=== PATIENT | female | born 1990 | race American Indian/Alaskan Native ===

== ENCOUNTER → 2016-10-01 | Outpatient (CLI) | payer MEDICAID ==
[2016-10-01 15:48] LABS: CHLORIDE,CL 106 mmol/L (98-110); SODIUM,NA 138 mmol/L (136-146)
== END ==
LOC: MW.CHRC 14:49
PROVIDERS: ATTEND Family Medicine
DX: Z51.81 Encounter for therapeutic drug level monitoring (principal); M06.9 Rheumatoid arthritis, unspecified; Z79.899 Other long term (current) drug therapy; D50.9 Iron deficiency anemia, unspecified
CPT/HCPCS: 36415; 80053; 83550; 85025; 85652

== ENCOUNTER → 2016-11-07 | Outpatient (CLI) | payer MEDICAID ==
[2016-11-07 16:14] LABS: CHLORIDE,CL 107 mmol/L (98-110); SODIUM,NA 138 mmol/L (136-146)
== END ==
LOC: MW.CHRC 15:15
PROVIDERS: ATTEND Family Medicine
DX: M25.552 Pain in left hip (principal)
CPT/HCPCS: 36415; 80053; 83540; 85025; 85652

== ENCOUNTER 2017-06-08 18:25 | Emergency (ER) | payer MEDICAID ==
--- NOTE | 2017-06-08 19:06 | EDM.PDOC ---
ED HPI GENERAL MEDICAL PROBLEM - General Chief Complaint: Upper Extremity Injury/Pain Stated Complaint: PT HURT RT ARM AT WORK Time Seen by Provider: 06/08/17 18:39 Source of Information: Reports: Patient History Limitations: Reports: No Limitations - History of Present Illness INITIAL COMMENTS - FREE TEXT/NARRATIVE: HISTORY AND PHYSICAL: History of present illness: Patient states she was at work when she slipped and fell landing on her right side. Patient has a history of rheumatoid arthritis and has chronic pain to her right shoulder. Stating she needs to get her right shoulder replaced. Currently she is complaining of right shoulder, elbow, forearm and wrist pain. She has the arm guarded in towards her body. Strong radial pulse. Denies hitting her head or any loss of consciousness. Review of systems: As per history of present illness and below otherwise all systems reviewed and negative. Past medical history: As per history of present illness and as reviewed below otherwise noncontributory. Surgical history: As per history of present illness and as reviewed below otherwise noncontributory. Social history: No reported history of drug or alcohol abuse. Family history: As per history of present illness and as reviewed below otherwise noncontributory. Physical exam: HEENT: Atraumatic, normocephalic, pupils reactive, negative for conjunctival pallor or scleral icterus, mucous membranes moist, throat clear, neck supple, nontender, trachea midline. Lungs: Clear to auscultation, breath sounds equal bilaterally, chest nontender. Heart: S1S2, regular, negative for clicks, rubs, or JVD. Abdomen: Soft, nondistended, nontender. Negative for masses or hepatosplenomegaly. Negative for costovertebral tenderness. Pelvis: Stable nontender. Genitourinary: Deferred. Rectal: Deferred. Extremities: Moves all extremities per self. Moderate pain with movement of the right shoulder and elbow. Neurovascular unremarkable. Good capillary refill. Strong radial pulses bilaterally. Skin: Small abrasion noted to the right elbow. Otherwise intact, warm, dry. Neuro: Awake, alert, oriented. Cranial nerves II through XII unremarkable. Cerebellum unremarkable. Motor and sensory unremarkable throughout. Exam nonfocal. Reviewed x-ray results with the patient. She states she has narcotic pain medications at home that she can take. I will give her prescription for Cataflam that she may take during daytime use. A shoulder immobilizer and wrist splint have been given with education. She continues to have problems, especially with her history of rheumatoid arthritis, that she should follow-up with her orthopedic doctor. She voices understanding and is agreeable to plan of care. She denies any further questions at this time. Diagnostics: X-ray of the right shoulder, elbow, wrist Therapeutics: Toradol Impression: Fall Right arm injury due to fall History of RA Plan: 1. There is no evidence of fracture to your shoulder, elbow, forearm or wrist. A shoulder sling and wrist immobilizer have been provided to you for comfort. If he continued to have pain please follow-up with the orthopedic provider. 2. A prescription for Cataflam has been given to you. This is an anti- inflammatory pain medication. Do not take any additional NSAIDs such as Aleve or ibuprofen while taking this medication. He may take your prescribed pain medications that he stayed you have at home. Ice for the first 24 hours, then gentle heat. 3. Please follow-up with your primary caregiver in the next 1-2 days. Return to the ED as needed and as discussed. Definitive disposition and diagnosis as appropriate pending reevaluation and review of above. Onset: Today Duration: Hour(s): Location: Reports: Upper Extremity, Right Right Shoulder Pain Score (Numeric/FACES): 10 - Related Data Allergies Allergy/AdvReac Type Severity Reaction Status Date / Time No Known Allergies Allergy Verified 09/04/16 10:48 Home Meds: Home Meds Adalimumab [Humira] 20 mg SQ 06/08/17 [History] Past Medical History - Past Health History Medical/Surgical History: Denies Medical/Surgical History HEENT History: Reports: None Cardiovascular History: Reports: None Respiratory History: Reports: None Gastrointestinal History: Reports: None Genitourinary History: Reports: None [employer]OR History: Reports: , Other (See Below) Other OB/BYN History: x3 Musculoskeletal History: Reports: RA, Other (See Below) Other Musculoskeletal History: rheumatoid arthritis Neurological History: Reports: None Psychiatric History: Reports: None Endocrine/Metabolic History: Reports: None Hematologic History: Reports: None Immunologic History: Reports: None Oncologic (Cancer) History: Reports: None Dermatologic History: Reports: None - Infectious Disease History Infectious Disease History: Reports: Chicken Pox - Past Surgical History Head Surgeries/Procedures: Reports: None HEENT Surgical History: Reports: None Female Surgical History: Reports: Section Social & Family History - Family History Family Medical History: Noncontributory - Tobacco Use Smoking Status *Q: Current Every Day Smoker Years of Tobacco use: 15 Packs/Tins Daily: 0.1 Used Tobacco, but Quit: Yes Month Tobacco Last Used: May Second Hand Smoke Exposure: No - Caffeine Use Caffeine Use: Reports: Coffee, Energy Drinks Caffeine Use Comment: 2/day - Alcohol Use Days Per Week of Alcohol Use: 0 - Recreational Drug Use Recreational Drug Use: No Review of Systems - Review of Systems Review Of Systems: ROS reveals no pertinent complaints other than HPI. ED EXAM, GENERAL - Physical Exam Exam: See Below (See dictation) Course - Vital Signs Last Recorded V/S: Last Vital Signs Temp 36.7 C 06/08/17 19:00 Pulse 84 06/08/17 19:00 Resp 18 06/08/17 19:00 BP 106/65 06/08/17 19:00 Pulse Ox 97 06/08/17 19:00 - Orders/Labs/Meds Orders: Active Orders 24 hr Category Date Time Status Elbow Min 3V Rt [CR] Stat Exams 06/08/17 19:00 Taken Shoulder Comp Rt [CR] Stat Exams 06/08/17 19:00 Taken Wrist 2V Rt [CR] Stat Exams 06/08/17 19:00 Taken DME for Discharge [COMM] Stat Oth 06/08/17 20:24 Ordered Meds: Medications Discontinued Medications Generic Name Dose Route Start Last Admin Trade Name Freq PRN Reason Stop Dose Admin Ketorolac Tromethamine 60 mg 06/08/17 19:09 06/08/17 19:29 Toradol IM 06/08/17 19:10 60 mg ONETIME ONE Administration Departure - Departure Time of Disposition: 20:31 Disposition: Home, Self-Care 01 Clinical Impression: Arm injury Qualifiers: Encounter type: initial encounter Laterality: right Qualified Code(s): S49.91XA - Unspecified injury of right shoulder and upper arm, initial encounter Fall Qualifiers: Encounter type: initial encounter Qualified Code(s): W19.XXXA - Unspecified fall, initial encounter - Discharge Information Forms: ED Department Discharge Additional Instructions: My general discharge The following information is given to patients seen in the emergency department who are being discharged to home. This information is to outline your options for follow-up care. We provide all patients seen in our emergency department with a follow-up referral. The need for follow-up, as well as the timing and circumstances, are variable depending upon the specifics of your emergency department visit. If you don't have a primary care physician on staff, we will provide you with a referral. We always advise you to contact your personal physician following an emergency department visit to inform them of the circumstance of the visit and for follow-up with them and/or the need for any referrals to a consulting specialist. The emergency department will also refer you to a specialist when appropriate. This referral assures that you have the opportunity for follow-up care with a specialist. All of these measure are taken in an effort to provide you with optimal care, which includes your follow-up. Under all circumstances we always encourage you to contact your private physician who remains a resource for coordinating your care. When calling for follow-up care, please make the office aware that this follow-up is from your recent emergency room visit. If for any reason you are refused follow-up, please contact the Emergency Department at and asked to speak to the emergency department charge nurse. Primary Care [address] [place] [id number] Specialty Care - Orthopedic Clinic Professional [facility] [address] [place] [address], [address] [place] [address] 1. There is no evidence of fracture to your shoulder, elbow, forearm or wrist. A shoulder sling and wrist immobilizer have been provided to you for comfort. If he continued to have pain please follow-up with the orthopedic provider. 2. A prescription for Cataflam has been given to you. This is an anti- inflammatory pain medication. Do not take any additional NSAIDs such as Aleve or ibuprofen while taking this medication. He may take your prescribed pain medications that he stayed you have at home. Ice for the first 24 hours, then gentle heat. 3. Please follow-up with your primary caregiver in the next 1-2 days. Return to the ED as needed and as discussed. - My Orders Last 24 Hours: My Active Orders 06/08/17 19:00 Elbow Min 3V Rt [CR] Stat Shoulder Comp Rt [CR] Stat Wrist 2V Rt [CR] Stat 06/08/17 20:24 DME for Discharge [COMM] Stat - Assessment/Plan Last 24 Hours: My Active Orders 06/08/17 19:00 Elbow Min 3V Rt [CR] Stat Shoulder Comp Rt [CR] Stat Wrist 2V Rt [CR] Stat 06/08/17 20:24 DME for Discharge [COMM] Stat
[2017-06-08] MEDS ORDERED: Ketorolac 60 MG/2 ML SDV IM ONE (19:09)
[2017-06-08 19:50] VITALS: BP 106/65
[2017-06-08] MEDS ORDERED: traMADol 50 MG Tab PO ONE (20:50)
--- NOTE | 2017-06-09 10:21 | CR ---
EXAM DATE: 06/08/17 PATIENT'S AGE: 26 Patient: YENI MELCHOR Facility: [place], [place] Site . Site : 1990 Study: XRay Extremity elbow [id number]/20/2017 7:51:48 PM Ordering Physician: Doctor Bronson Final Report: HISTORY: Fall. FINDINGS: Three views of the right elbow did not reveal a joint effusion. There is normal alignment present. The radial head appears intact. No fracture line is seen. IMPRESSION: No joint effusion or fracture identified within the right elbow. Dictated by Lanny Crawford MD @ 06/08/2017 8:17:21 PM Dictated by: Lanny Crawford MD @ 06/08/2017 20:17:26 (Electronic Signature) Report Signed by Proxy. MTDShruthi
--- NOTE | 2017-06-09 10:22 | CR ---
EXAM DATE: 06/08/17 PATIENT'S AGE: 26 Patient: YENI MELCHOR Facility: [place], [place] Site . Site : 1990 Study: XRay Extremity wrist [id number]/20/2017 7:52:12 PM Ordering Physician: Doctor Bronson Final Report: HISTORY: Fall. FINDINGS: Two views of the right wrist demonstrates decrease of the radiocarpal joint with decreased joint space between the carpals. There is normal alignment present. No fracture line is seen. IMPRESSION: 1. Degenerative changes of the wrist with decreased joint space. 2. No fracture identified. If snuffbox tenderness is present and persistent, a follow up exam in 7-10 days may be of value to exclude an occult scaphoid fracture. Dictated by Lanny Crawford MD @ 06/08/2017 8:18:51 PM Dictated by: Lanny Crawford MD @ 06/08/2017 20:18:59 (Electronic Signature) Report Signed by Proxy. MTDShruthi
--- NOTE | 2017-06-09 10:23 | CR ---
EXAM DATE: 06/08/17 PATIENT'S AGE: 26 Patient: YENI MELCHOR Facility: [place], [place] Site . Site : 1990 Study: XRay Shoulder [id number]/20/2017 7:53:16 PM Ordering Physician: Doctor Bronson Final Report: HISTORY: Fall, limited range of motion. FINDINGS: Two views of the right shoulder are compared with 01 August 2016. There decrease of the glenohumeral joint. No acute fracture or dislocation is seen. There is artifact seen medial to the right arm on the AP view and overlying the chest on the transscapular Y-view. IMPRESSION: 1. No fracture identified. 2. Decrease of the glenohumeral joint. Dictated by Lanny Crawford MD @ 06/08/2017 8:22:01 PM Dictated by: Lanny Crawford MD @ 06/08/2017 20:22:06 (Electronic Signature) Report Signed by Proxy. KENNY
== END 2017-06-08 20:55 | disposition home or self-care (01) ==
LOC: MW.ED 18:25
DX: S49.91XA Unspecified injury of right shoulder and upper arm, initial encounter (principal); F17.210 Nicotine dependence, cigarettes, uncomplicated; W01.0XXA Fall on same level from slipping, tripping and stumbling without subsequent striking against object, initial encounter
CPT/HCPCS: 73030; 73080; 73100; 96372; 99283; A9270; J1885; 99284

== ENCOUNTER 2017-06-17 17:20 | Emergency (ER) | payer MEDICAID ==
[2017-06-17] MEDS ORDERED: Sodium Chloride 0.9% 1,000 ML IV ONE (17:29)
[2017-06-17] MEDS ORDERED: diphenhydrAMINE 50 MG/ML SDV IVPUSH ONE (17:29)
[2017-06-17] MEDS ORDERED: Ondansetron 4 MG/2 ML SDV IVPUSH ONE (17:29)
[2017-06-17] MEDS ORDERED: Ketorolac 30 MG/ML SDV IVPUSH ONE (17:29)
--- NOTE | 2017-06-17 17:31 | EDM.PDOC ---
ED HPI GENERAL MEDICAL PROBLEM - General Chief Complaint: Headache Stated Complaint: PT HAS MIGRAINE Time Seen by Provider: 06/17/17 17:22 Source of Information: Reports: Patient History Limitations: Reports: No Limitations - History of Present Illness INITIAL COMMENTS - FREE TEXT/NARRATIVE: HISTORY AND PHYSICAL: Headache History of present illness: Patient is a 26-year-old female who presents to the emergency room with complaints of neck pain and a headache. She states she woke up this morning with "grinding" sensation to her neck anytime she turns it left her right. She felt a "pop" when she turned her head this morning. Had a dull headache last night which has worsened since awakening this morning. Describes the pain as coming from behind her neck up around her scalp bilaterally and behind her eyes. Currently complaints of nausea and visual straining/squinting when driving her vehicle. Stating that it's blurry in the peripheral line bilaterally. She currently has no visual changes or concerns. She reports she has taken Motrin [id number] without any relief. Patient did have a fall on 06/08/2017 which she was evaluated in the emergency room for. At that time her complaint was right upper extremity pain. X-rays were done of the shoulder, elbow, wrist which were all negative. She denies hitting her head or any loss of consciousness during this incident. Not having any neck pain during this incident. Denies any fever, chills, chest pain, shortness of breath, abdominal pain, vomiting or diarrhea. Review of systems: As per history of present illness and below otherwise all systems reviewed and negative. Past medical history: As per history of present illness and as reviewed below otherwise noncontributory. Surgical history: As per history of present illness and as reviewed below otherwise noncontributory. Social history: No reported history of drug or alcohol abuse. Family history: As per history of present illness and as reviewed below otherwise noncontributory. Physical exam: Gen.: HEENT: Atraumatic, normocephalic, pupils reactive, negative for conjunctival pallor or scleral icterus, mucous membranes moist, throat clear, neck supple, nontender, trachea midline. Visual acuity is within normal limits. No nystagmus noted. Does not wear contact lenses or glasses. Lungs: Clear to auscultation, breath sounds equal bilaterally, chest nontender. Heart: S1S2, regular, negative for clicks, rubs, or JVD. Abdomen: Soft, nondistended, nontender. Negative for masses or hepatosplenomegaly. Negative for costovertebral tenderness. Pelvis: Stable nontender. Genitourinary: Deferred. Rectal: Deferred. C-spine/back: No pinpoint vertebral tenderness of the C-spine or back. No crepitus, or obvious deformities or step-offs. Denies any numbness or tingling to her distal extremities. Extremities: Atraumatic, moves all per self, negative for cords or calf pain. Neurovascular unremarkable. Neuro: Awake, alert, oriented. Cranial nerves II through XII unremarkable. Cerebellum unremarkable. Motor and sensory unremarkable throughout. Exam nonfocal. Due to her recent injury on 06/08/2017 I discussed performing a C-spine x-ray to make sure that there is no underlying fracture. She is agreeable to plan of care. Patient is requesting pain medication at this time. Will give her Zofran, Toradol and Benadryl. She does state she has a history of rheumatoid arthritis and takes a lot of anti-inflammatory pain medications and would like something stronger. I suggested we start with the above-stated regiment and we can add more medication if needed. C-spine x-ray is normal. Currently her headache pain is a 4/10, states she feels somewhat better. We discussed using gentle heat at home and resting for the rest the day. She may continue to use [id number] Motrin as needed. Robaxin (dispensed #12 -no refills ) has been prescribed. She states she'll follow up with her primary caregiver in the next 1-2 days. Returning to the ED as needed Diagnostics: Cervical spine x-ray Therapeutics: IV fluid, Zofran, Toradol, Benadryl Impression: Tension Headache Muscular strain Plan: 1. Please continue to use your Motrin [id number] as needed for pain relief. Robaxin 500 mg 1 tab up to 3 times daily has been prescribed for you for muscle spasms in your neck. Please apply gentle heat to the area over the next couple days. 2. Follow-up with your primary caregiver in the next 1-2 days. Return to the ED as needed and as discussed. Definitive disposition and diagnosis as appropriate pending reevaluation and review of above. Duration: Day(s): Location: Reports: Head, Neck occipital area Pain Score (Numeric/FACES): 10 - Related Data Allergies Allergy/AdvReac Type Severity Reaction Status Date / Time No Known Allergies Allergy Verified 06/17/17 17:23 Home Meds: Home Meds Adalimumab [Humira] 20 mg SQ 06/08/17 [History] Past Medical History - Past Health History Medical/Surgical History: Denies Medical/Surgical History HEENT History: Reports: None Cardiovascular History: Reports: None Respiratory History: Reports: None Gastrointestinal History: Reports: None Genitourinary History: Reports: None [employer] History: Reports: , Other (See Below) Other OB/BYN History: x3 Musculoskeletal History: Reports: RA, Other (See Below) Other Musculoskeletal History: rheumatoid arthritis Neurological History: Reports: None Psychiatric History: Reports: None Endocrine/Metabolic History: Reports: None Hematologic History: Reports: None Immunologic History: Reports: None Oncologic (Cancer) History: Reports: None Dermatologic History: Reports: None - Infectious Disease History Infectious Disease History: Reports: Chicken Pox - Past Surgical History Head Surgeries/Procedures: Reports: None HEENT Surgical History: Reports: None Female Surgical History: Reports: Section Social & Family History - Family History Family Medical History: Noncontributory - Tobacco Use Smoking Status *Q: Never Smoker Years of Tobacco use: 4 Packs/Tins Daily: 0.1 Used Tobacco, but Quit: Yes Month Tobacco Last Used: May Second Hand Smoke Exposure: No - Caffeine Use Caffeine Use: Reports: Coffee Caffeine Use Comment: 2/day - Alcohol Use Days Per Week of Alcohol Use: 0 - Recreational Drug Use Recreational Drug Use: No ED ROS GENERAL - Review of Systems Review Of Systems: ROS reveals no pertinent complaints other than HPI. - Physical Exam Exam: See Below (See dictation) Course - Vital Signs Last Recorded V/S: Last Vital Signs Temp 97.4 F 06/17/17 17:20 Pulse 87 06/17/17 17:20 Resp 18 06/17/17 17:20 BP 107/67 06/17/17 17:20 Pulse Ox 97 06/17/17 17:20 - Orders/Labs/Meds Orders: Active Orders 24 hr Category Date Time Status Cervical Spine 2V or 3V [CR] Stat Exams 06/17/17 17:35 Taken Meds: Medications Discontinued Medications Generic Name Dose Route Start Last Admin Trade Name [place] PRN Reason Stop Dose Admin Diphenhydramine HCl 25 mg 06/17/17 17:29 06/17/17 18:35 Benadryl IVPUSH 06/17/17 17:30 25 mg ONETIME ONE Administration Sodium Chloride 1,000 mls @ 999 mls/hr 06/17/17 17:29 06/17/17 18:29 Normal Saline IV 06/17/17 18:29 999 mls/hr STAT ONE Administration Ketorolac Tromethamine 30 mg 06/17/17 17:29 06/17/17 18:34 Toradol IVPUSH 06/17/17 17:30 30 mg ONETIME ONE Administration Ondansetron HCl 4 mg 06/17/17 17:29 06/17/17 18:31 Zofran IVPUSH 06/17/17 17:30 4 mg ONETIME ONE Administration Departure - Departure Time of Disposition: 19:14 Disposition: Home, Self-Care 01 Clinical Impression: Tension-type headache Neck muscle strain Qualifiers: Encounter type: initial encounter Qualified Code(s): S16.1XXA - Strain of muscle, fascia and tendon at neck level, initial encounter - Discharge Information Referrals: PCP,None [Primary Care Provider] - Forms: ED Department Discharge Additional Instructions: My general discharge The following information is given to patients seen in the emergency department who are being discharged to home. This information is to outline your options for follow-up care. We provide all patients seen in our emergency department with a follow-up referral. The need for follow-up, as well as the timing and circumstances, are variable depending upon the specifics of your emergency department visit. If you don't have a primary care physician on staff, we will provide you with a referral. We always advise you to contact your personal physician following an emergency department visit to inform them of the circumstance of the visit and for follow-up with them and/or the need for any referrals to a consulting specialist. The emergency department will also refer you to a specialist when appropriate. This referral assures that you have the opportunity for follow-up care with a specialist. All of these measure are taken in an effort to provide you with optimal care, which includes your follow-up. Under all circumstances we always encourage you to contact your private physician who remains a resource for coordinating your care. When calling for follow-up care, please make the office aware that this follow-up is from your recent emergency room visit. If for any reason you are refused follow-up, please contact the [facility] Emergency Department at and asked to speak to the emergency department charge nurse. [facility] Primary Care [address] [place] [id number] 1. Please continue to use your Motrin phmr-gmx-cehiarx as needed for pain relief. Robaxin 500 mg, you may take 1 tab up to 3 times daily as needed - This has been prescribed for you for muscle spasms in your neck. Please apply gentle heat to the area over the next couple days. 2. Follow-up with your primary caregiver in the next 1-2 days. Return to the ED as needed and as discussed. - My Orders Last 24 Hours: My Active Orders 06/17/17 17:35 Cervical Spine 2V or 3V [CR] Stat - Assessment/Plan Last 24 Hours: My Active Orders 06/17/17 17:35 Cervical Spine 2V or 3V [CR] Stat
[2017-06-17 19:30] VITALS: BP 112/72
--- NOTE | 2017-06-18 10:21 | CR ---
EXAM DATE: 06/17/17 PATIENT'S AGE: 26 Patient: YENI MELCHOR Facility: [place], [place] Site . Site : 1990 Study: XRay Spine Cervical [id number]/29/2017 6:09:22 PM Ordering Physician: Doctor Bronson Final Report: INDICATION: Headache since early this morning. History of rheumatoid arthritis. Grinding sensation bottom of neck. TECHNIQUE: Cervical spine radiograph 3 view COMPARISON: None FINDINGS: Bones: Alignment is normal. No acute fractures or aggressive osseous lesions seen. Disc spaces: Disc spaces are normal. Facet joints are normal. Soft tissues: Unremarkable. IMPRESSION: 1. No acute osseous injuries are identified. Dictated by Alfredo Arevalo MD @ 06/17/2017 6:54:25 PM Dictated by: Alfredo Arevalo MD @ 06/17/2017 18:54:33 (Electronic Signature) Report Signed by Proxy. KENNY
== END 2017-06-17 19:34 | disposition home or self-care (01) ==
LOC: MW.ED 17:20
DX: S16.1XXA Strain of muscle, fascia and tendon at neck level, initial encounter (principal); G44.209 Tension-type headache, unspecified, not intractable; X50.1XXA Overexertion from prolonged static or awkward postures, initial encounter; Z87.891 Personal history of nicotine dependence
CPT/HCPCS: 72040; 96361; 96374; 96375; 99283; J1200; J2405; J7040; 99284; J1885

== ENCOUNTER 2019-02-05 13:13 | Emergency (ER) | payer MEDICAID ==
[2019-02-05] MEDS ORDERED: Sodium Chloride 0.9% 1,000 ML IV ONE (13:16)
[2019-02-05] MEDS ORDERED: Ondansetron 4 MG/2 ML SDV IVPUSH ONE (13:16)
[2019-02-05] MEDS ORDERED: Ketorolac 30 MG/ML SDV IVPUSH ONE (13:16)
[2019-02-05] MEDS ORDERED: Sodium Chloride 0.9% 10 ML Syringe FLUSH PRN (13:17)
[2019-02-05] MEDS ORDERED: Sodium Chloride 0.9% 2.5 ML Syringe FLUSH PRN (13:17)
[2019-02-05] MEDS ORDERED: Morphine 4 MG/ML Syringe IVPUSH ONE (13:21)
--- NOTE | 2019-02-05 13:30 | EDM.PDOC ---
ED HPI GENERAL MEDICAL PROBLEM - General Chief Complaint: Gastrointestinal Problem Stated Complaint: ABD PAIN Time Seen by Provider: 02/05/19 13:21 Source of Information: Reports: Patient History Limitations: Reports: No Limitations - History of Present Illness INITIAL COMMENTS - FREE TEXT/NARRATIVE: HISTORY AND PHYSICAL: History of present illness: Patient is a 28-year-old female who presents to the emergency room today with complaints of generalized abdominal pain, nausea, vomiting and blood in her urine and stool. She states symptoms started last night. Pain is more prevalent in the left upper quadrant. She states she had dysuria last evening and then did notice some blood in her urine this morning. She states when she wiped after her bowel movement she did notice blood on the tissue. She did not notice any blood mixed in the stool or any dark color stool. She is unsure if she has a hemorrhoid. She states she has had blood in her stool before which she thought was a hemorrhoid but was too scared to get this evaluated and did eventually resolve on its own. Review of systems: As per history of present illness and below otherwise all systems reviewed and negative. Past medical history: As per history of present illness and as reviewed below otherwise noncontributory. Surgical history: As per history of present illness and as reviewed below otherwise noncontributory. Social history: See social history for further information Family history: As per history of present illness and as reviewed below otherwise noncontributory. Physical exam: General: Well-developed and well-nourished 28-year-old female. Alert and oriented. Nontoxic appearing and appears mildly uncomfortable due to the abdominal pain. Vital signs are stable and have been reviewed by me. HEENT: Atraumatic, normocephalic, pupils equal and reactive bilaterally, negative for conjunctival pallor or scleral icterus, mucous membranes moist, trachea midline. No drooling or trismus noted. No meningeal signs. No hot potato voice noted. Lungs: Clear to auscultation, breath sounds equal bilaterally, chest nontender. Heart: S1S2, regular rate and rhythm without overt murmur Abdomen: Soft, nondistended, left upper quadrant tenderness with palpation. Negative for masses. Negative for costovertebral tenderness. Pelvis: Stable nontender. Genitourinary: Deferred. Rectal: This is and with consent and a financial manager at the bedside. No external or internal hemorrhoids appreciated. Good rectal tone. Hemoccult stool is negative. Skin: Intact, warm, dry. No lesions or rashes noted. Extremities: Atraumatic, moves all extremities per self without difficulty or deficits. Neurovascular unremarkable. Neuro: Awake, alert, oriented. Cranial nerves II through XII unremarkable. Cerebellum unremarkable. Motor and sensory unremarkable throughout. Exam nonfocal. Notes: Lab work is unremarkable. Multiple liver lesions have appearance suggesting numerous hepatic hemangiomas. This is an unusually large number of hemangiomas and some do not have typical peripheral puddling although the majority do. Suggesting MRI follow up. Clinical correlation for mild cystitis recommended. Diagnostic findings were shared with the patient. We discussed the need for appropriate follow-up. She voices understanding and will make a follow-up with urology in general surgeon for possible colonoscopy. Supportive care measures were reviewed and discussed. Voices understanding and is agreeable to plan of care. Denies any further questions or concerns at this time. Diagnostics: CBC, CMP, UA, urine , lipase, CT abdomen and pelvis Therapeutics: IV fluid, Zofran, Toradol, morphine Prescription: Zofran Cipro Impression: Abdominal pain Mild Cystitis Hepatic lesions, incidental findings Plan: 1. Please take your medications as prescribed. Increase your oral fluids. 2. I would like you to follow-up with urology if you continued to have symptoms. Phone numbers listed in your discharge packet. 3. The CT scan showed an incidental finding of hepatic lesions (no masses); encourage you to follow-up with your primary care provider for possible MRI. 4. Return to the ED as needed and as discussed. Definitive disposition and diagnosis as appropriate pending reevaluation and review of above. Abdomen Pain Score (Numeric/FACES): 10 - Related Data Allergies Allergy/AdvReac Type Severity Reaction Status Date / Time No Known Allergies Allergy Verified 02/05/19 13:19 Home Meds: Home Meds Methotrexate Sodium/PF [Methotrexate 1 gm Vial] 1 gm IJ 02/05/19 [History] Ondansetron [Zofran ODT] 4 mg PO Q6H PRN #10 tab.dis 02/05/19 [Rx] Past Medical History - Past Health History Medical/Surgical History: Denies Medical/Surgical History HEENT History: Reports: None Cardiovascular History: Reports: None Respiratory History: Reports: None Gastrointestinal History: Reports: None Genitourinary History: Reports: None INTEL RECRUITER History: Reports: , Other (See Below) Other INTEL RECRUITER History: x3 Musculoskeletal History: Reports: RA, Other (See Below) Other Musculoskeletal History: rheumatoid arthritis Neurological History: Reports: None Psychiatric History: Reports: None Endocrine/Metabolic History: Reports: None Hematologic History: Reports: None Immunologic History: Reports: None Oncologic (Cancer) History: Reports: None Dermatologic History: Reports: None - Infectious Disease History Infectious Disease History: Reports: Chicken Pox - Past Surgical History Head Surgeries/Procedures: Reports: None HEENT Surgical History: Reports: None Female Surgical History: Reports: Section Social & Family History - Family History Family Medical History: Noncontributory - Tobacco Use Smoking Status *Q: Never Smoker - Caffeine Use Caffeine Use: Reports: Coffee, Energy Drinks Caffeine Use Comment: 2/day - Recreational Drug Use Recreational Drug Use: No ED ROS GENERAL - Review of Systems Review Of Systems: ROS reveals no pertinent complaints other than HPI. ED EXAM, GI/ABD - Physical Exam Exam: See Below (See dictation) Course - Vital Signs Last Recorded V/S: Last Vital Signs Temp 96.9 F 02/05/19 13:17 Pulse 70 02/05/19 15:58 Resp 17 02/05/19 15:58 BP 111/66 02/05/19 15:58 Pulse Ox 99 02/05/19 15:58 - Orders/Labs/Meds Orders: Active Orders 24 hr Category Date Time Status EKG Documentation Completion [RC] STAT Care 02/05/19 13:23 Active Hemoccult [Fecal Occult Blood Collection] [RC] Care 02/05/19 14:41 Active ASDIRECTED CDIFF TOX A+B [OP] Stat Lab 02/05/19 15:56 Ordered CULTURE STOOL + CAMPY+SHIGATOX [RM] Stat Lab 02/05/19 15:56 Ordered OVA & PARASITES BY IMMUNOASSAY [MREF] Stat Lab 02/05/19 15:56 Ordered Sodium Chloride 0.9% [Saline Flush] Med 02/05/19 13:17 Active 10 ml FLUSH ASDIRECTED PRN Sodium Chloride 0.9% [Saline Flush] Med 02/05/19 13:17 Active 2.5 ml FLUSH ASDIRECTED PRN Isolation [COMM] Stat Oth 02/05/19 15:21 Ordered Saline Lock Insert [OM.PC] Stat Oth 02/05/19 13:17 Ordered Medication Orders Sodium Chloride (Saline Flush) 10 ml FLUSH ASDIRECTED PRN PRN Reason: Keep Vein Open Last Admin: 02/05/19 13:24 Dose: 10 ml Sodium Chloride (Saline Flush) 2.5 ml FLUSH ASDIRECTED PRN PRN Reason: Keep Vein Open Last Admin: 02/05/19 13:24 Dose: 2.5 ml Labs: Laboratory Tests 02/05/19 02/05/19 02/05/19 Range/Units 13:20 13:20 13:30 WBC 10.85 (4.0-11.0) K/uL RBC 4.70 (4.30-5.90) M/uL Hgb 11.7 L (12.0-16.0) g/dL Hct 37.2 (36.0-46.0) % MCV 79.1 L (80.0-98.0) fL MCH 24.9 L (27.0-32.0) pg MCHC 31.5 (31.0-37.0) g/dL RDW Std Deviation 42.8 (28.0-62.0) fl RDW Coeff of Delvis 15 (11.0-15.0) % Plt Count 319 (150-400) K/uL MPV 9.30 (7.40-12.00) fL Neut % (Auto) 77.5 (48.0-80.0) % Lymph % (Auto) 12.7 L (16.0-40.0) % Lipscomb % (Auto) 8.1 (0.0-15.0) % Eos % (Auto) 1.3 (0.0-7.0) % Baso % (Auto) 0.4 (0.0-1.5) % Neut # (Auto) 8.4 H (1.4-5.7) K/uL Lymph # (Auto) 1.4 (0.6-2.4) K/uL Lipscomb # (Auto) 0.9 H (0.0-0.8) K/uL Eos # (Auto) 0.1 (0.0-0.7) K/uL Baso # (Auto) 0.0 (0.0-0.1) K/uL Nucleated RBC % 0.0 /100WBC Nucleated RBCs # 0 K/uL Sodium 136 (136-145) mmol/L Potassium 3.5 (3.5-5.1) mmol/L Chloride 104 (98-107) mmol/L Carbon Dioxide 18.1 L (21.0-32.0) mmol/L BUN 13 (7.0-18.0) mg/dL Creatinine 0.7 (0.6-1.0) mg/dL Est Cr Clr Drug Dosing 106.70 mL/min Estimated GFR (MDRD) > 60.0 ml/min Glucose 82 (74-106) mg/dL Calcium 9.0 (8.5-10.1) mg/dL Total Bilirubin 0.3 (0.2-1.0) mg/dL AST 16 (15-37) IU/L ALT 22 (14-63) IU/L Alkaline Phosphatase 103 (46-116) U/L Total Protein 8.2 (6.4-8.2) g/dL Albumin 3.9 (3.4-5.0) g/dL Globulin 4.3 H (2.6-4.0) g/dL Albumin/Globulin Ratio 0.9 (0.9-1.6) Lipase 84 (73-393) U/L Urine Color YELLOW Urine Appearance CLEAR Urine pH 7.5 (5.0-8.0) Ur Specific Strat[place] 1.010 (1.001-1.035) Urine Protein NEGATIVE (NEGATIVE) mg/dL Urine Glucose (UA) NEGATIVE (NEGATIVE) mg/dL Urine Ketones NEGATIVE (NEGATIVE) mg/dL Urine Occult Blood NEGATIVE (NEGATIVE) Urine Nitrite NEGATIVE (NEGATIVE) Urine Bilirubin NEGATIVE (NEGATIVE) Urine Urobilinogen 0.2 (<2.0) EU/dL Ur Leukocyte Esterase NEGATIVE (NEGATIVE) Urine HCG, Qual (NEGATIVE) 02/05/19 Range/Units 13:30 WBC (4.0-11.0) K/uL RBC (4.30-5.90) M/uL Hgb (12.0-16.0) g/dL Hct (36.0-46.0) % MCV (80.0-98.0) fL MCH (27.0-32.0) pg MCHC (31.0-37.0) g/dL RDW Std Deviation (28.0-62.0) fl RDW Coeff of Delvis (11.0-15.0) % Plt Count (150-400) K/uL MPV (7.40-12.00) fL Neut % (Auto) (48.0-80.0) % Lymph % (Auto) (16.0-40.0) % Lipscomb % (Auto) (0.0-15.0) % Eos % (Auto) (0.0-7.0) % Baso % (Auto) (0.0-1.5) % Neut # (Auto) (1.4-5.7) K/uL Lymph # (Auto) (0.6-2.4) K/uL Lipscomb # (Auto) (0.0-0.8) K/uL Eos # (Auto) (0.0-0.7) K/uL Baso # (Auto) (0.0-0.1) K/uL Nucleated RBC % /100WBC Nucleated RBCs # K/uL Sodium (136-145) mmol/L Potassium (3.5-5.1) mmol/L Chloride (98-107) mmol/L Carbon Dioxide (21.0-32.0) mmol/L BUN (7.0-18.0) mg/dL Creatinine (0.6-1.0) mg/dL Est Cr Clr Drug Dosing mL/min Estimated GFR (MDRD) ml/min Glucose (74-106) mg/dL Calcium (8.5-10.1) mg/dL Total Bilirubin (0.2-1.0) mg/dL AST (15-37) IU/L ALT (14-63) IU/L Alkaline Phosphatase (46-116) U/L Total Protein (6.4-8.2) g/dL Albumin (3.4-5.0) g/dL Globulin (2.6-4.0) g/dL Albumin/Globulin Ratio (0.9-1.6) Lipase (73-393) U/L Urine Color Urine Appearance Urine pH (5.0-8.0) Ur Specific Strat[place] (1.001-1.035) Urine Protein (NEGATIVE) mg/dL Urine Glucose (UA) (NEGATIVE) mg/dL Urine Ketones (NEGATIVE) mg/dL Urine Occult Blood (NEGATIVE) Urine Nitrite (NEGATIVE) Urine Bilirubin (NEGATIVE) Urine Urobilinogen (<2.0) EU/dL Ur Leukocyte Esterase (NEGATIVE) Urine HCG, Qual NEGATIVE (NEGATIVE) Meds: Medications Generic Name Dose Route Start Last Admin Trade Name Freq PRN Reason Stop Dose Admin Sodium Chloride 10 ml 02/05/19 13:17 02/05/19 13:24 Saline Flush FLUSH 10 ml ASDIRECTED PRN Administration Keep Vein Open Sodium Chloride 2.5 ml 02/05/19 13:17 02/05/19 13:24 Saline Flush FLUSH 2.5 ml ASDIRECTED PRN Administration Keep Vein Open Discontinued Medications Generic Name Dose Route Start Last Admin Trade Name Freq PRN Reason Stop Dose Admin Sodium Chloride 1,000 mls @ 999 mls/hr 02/05/19 13:16 02/05/19 13:24 Normal Saline IV 02/05/19 14:16 999 mls/hr .BOLUS ONE Administration Iopamidol 90 ml 02/05/19 14:37 02/05/19 14:38 Isovue Multipack-370 (76%) IVPUSH 02/05/19 14:38 90 ml ONETIME ONE Administration Ketorolac Tromethamine 30 mg 02/05/19 13:16 02/05/19 13:23 Toradol IVPUSH 02/05/19 13:17 30 mg ONETIME ONE Administration Morphine Sulfate 4 mg 02/05/19 13:21 02/05/19 14:00 Morphine IVPUSH 02/05/19 13:22 4 mg ONETIME ONE Administration Ondansetron HCl 4 mg 02/05/19 13:16 02/05/19 13:23 Zofran IVPUSH 02/05/19 13:17 4 mg ONETIME ONE Administration Departure - Departure Time of Disposition: 15:58 Disposition: Home, Self-Care 01 Clinical Impression: Cystitis, Hepatic lesion, Abdominal pain - Discharge Information Prescriptions: Ondansetron [Zofran ODT] 4 mg PO Q6H PRN #10 tab.dis PRN Reason: Nausea Instructions: Abdominal Pain, Adult, [id number] Referrals: PCP,Unknown [Primary Care Provider] - Forms: ED Department Discharge Additional Instructions: The following information is given to patients seen in the emergency department who are being discharged to home. This information is to outline your options for follow-up care. We provide all patients seen in our emergency department with a follow-up referral. The need for follow-up, as well as the timing and circumstances, are variable depending upon the specifics of your emergency department visit. If you don't have a primary care physician on staff, we will provide you with a referral. We always advise you to contact your personal physician following an emergency department visit to inform them of the circumstance of the visit and for follow-up with them and/or the need for any referrals to a consulting specialist. The emergency department will also refer you to a specialist when appropriate. This referral assures that you have the opportunity for follow-up care with a specialist. All of these measure are taken in an effort to provide you with optimal care, which includes your follow-up. Under all circumstances we always encourage you to contact your private physician who remains a resource for coordinating your care. When calling for follow-up care, please make the office aware that this follow-up is from your recent emergency room visit. If for any reason you are refused follow-up, please contact the [facility] Emergency Department at and asked to speak to the emergency department charge nurse. [facility] [address] [place] [address] [address] [facility]ty [facility] - Urology [address] [place] [id number] 1. Please take your medications as prescribed. Increase your oral fluids. 2. I would like you to follow-up with urology if you continued to have symptoms. Phone numbers listed in your discharge packet. 3. The CT scan showed an incidental finding of hepatic lesions (no masses); encourage you to follow-up with your primary care provider for possible MRI. 4. Return to the ED as needed and as discussed. - My Orders Last 24 Hours: My Active Orders 02/05/19 13:17 Sodium Chloride 0.9% [Saline Flush] 10 ml FLUSH ASDIRECTED PRN Sodium Chloride 0.9% [Saline Flush] 2.5 ml FLUSH ASDIRECTED PRN Saline Lock Insert [OM.PC] Stat 02/05/19 13:23 EKG Documentation Completion [RC] STAT 02/05/19 14:41 Hemoccult [Fecal Occult Blood Collection] [RC] ASDIRECTED 02/05/19 15:21 Isolation [COMM] Stat 02/05/19 15:56 CDIFF TOX A+B [OP] Stat CULTURE STOOL + CAMPY+SHIGATOX [RM] Stat OVA & PARASITES BY IMMUNOASSAY [MREF] Stat - Assessment/Plan Last 24 Hours: My Active Orders 02/05/19 13:17 Sodium Chloride 0.9% [Saline Flush] 10 ml FLUSH ASDIRECTED PRN Sodium Chloride 0.9% [Saline Flush] 2.5 ml FLUSH ASDIRECTED PRN Saline Lock Insert [OM.PC] Stat 02/05/19 13:23 EKG Documentation Completion [RC] STAT 02/05/19 14:41 Hemoccult [Fecal Occult Blood Collection] [RC] ASDIRECTED 02/05/19 15:21 Isolation [COMM] Stat 02/05/19 15:56 CDIFF TOX A+B [OP] Stat CULTURE STOOL + CAMPY+SHIGATOX [RM] Stat OVA & PARASITES BY IMMUNOASSAY [MREF] Stat
[2019-02-05 13:56] LABS: CHLORIDE,CL 104 mmol/L (98-107); SODIUM,NA 136 mmol/L (136-145)
[2019-02-05] MEDS ORDERED: Iopamidol 755 MG/ML 500 ML Multipack Bottle IVPUSH ONE (14:37)
--- NOTE | 2019-02-05 15:05 | CT ---
INDICATION: Bloody stools. Nausea. COMPARISON: None. TECHNIQUE: 90 mL Isovue-370 IV contrast. FINDINGS: Visualized lung parenchyma is unremarkable. Multiple low-attenuation well-defined but irregularly margined lesions scattered throughout the liver many of which have peripheral high attenuation paralleling hepatic vascularity. No mass effect of these lesions. Hepatic vascularity in portal vascularity are normal. Spleen is normal. No adrenal mass. Pancreas appears normal. Kidneys enhance appropriately. Some early contrast excretion in the collecting systems. 1 mm calculus not excluded as the lower pole on the left. Normal appendix. No pathologic adenopathy. Collapsing right ovarian cyst. Mildly thickened urinary bladder wall given the degree of distention. Questionable perivesicular hazy inflammatory attenuation. No bone finding of significance. IMPRESSION: 1. Multiple liver lesions have appearance suggesting numerous hepatic hemangiomas. This is an unusually large number of hemangiomas and some do not have typical peripheral puddling although the majority do. Comparison to prior imaging if available would be helpful. Further characterization with an MRI with contrast recommended to further characterize diagnosis and guide management. 2. Clinical correlation for mild cystitis recommended. 3. No definite findings to account for bloody stools or nausea. Please note that all CT scans at this facility use dose modulation, iterative reconstruction, and/or weight-based dosing when appropriate to reduce radiation dose to as low as reasonably achievable. Dictated by Salvatore Cuello MD @ Feb 05 2019 3:04PM Signed by Dr. Salvatore Cuello @ Feb 05 2019 3:04PM
[2019-02-05 15:58] VITALS: BP 111/66
== END 2019-02-05 16:19 | disposition home or self-care (01) ==
LOC: MW.ED 13:13
DX: N30.91 Cystitis, unspecified with hematuria (principal); K76.89 Other specified diseases of liver; M06.9 Rheumatoid arthritis, unspecified
CPT/HCPCS: 36415; 74177; 80053; 81003; 81025; 83690; 85025; 93005; 99284; J1885; J2270; J2405; J7040; Q9967; 99283

== ENCOUNTER 2019-02-10 22:15 | Emergency (ER) | payer MEDICAID ==
--- NOTE | 2019-02-10 22:30 | EDM.PDOC ---
ED HPI GENERAL MEDICAL PROBLEM - General Chief Complaint: Abdominal Pain Stated Complaint: PT HAS STOMACH PAIN Time Seen by Provider: 02/10/19 22:30 Source of Information: Reports: Patient History Limitations: Reports: No Limitations - History of Present Illness INITIAL COMMENTS - FREE TEXT/NARRATIVE: HISTORY AND PHYSICAL: History of present illness: Patient is a 28-year-old female presents to the ED for abdominal pain. She was seen 5 days ago for similar symptoms, diagnosed with a UTI. She states she finished her antibiotic today and has been having worse pain than before. Pain is along her upper abdomen. She had one episode of vomiting today. Denies fevers , chills, diarrhea, dysuria, hematuria. She has been taking tramadol with little relief of symptoms. Review of systems: As per history of present illness and below otherwise all systems reviewed and negative. Past medical history: As per history of present illness and as reviewed below otherwise noncontributory. Surgical history: As per history of present illness and as reviewed below otherwise noncontributory. Social history: No reported history of drug or alcohol abuse. Family history: As per history of present illness and as reviewed below otherwise noncontributory. Physical exam: General: Patient sitting comfortably in no acute distress and nontoxic appearing HEENT: Atraumatic, normocephalic, pupils reactive, negative for conjunctival pallor or scleral icterus, mucous membranes moist, throat clear, neck supple, nontender, trachea midline. No meningeal signs. Lungs: Clear to auscultation, breath sounds equal bilaterally, chest nontender. Heart: S1S2, regular, negative for clicks, rubs, or overt murmur. Abdomen: Mild periumbilical and epigastric tenderness to palpation. Soft, nondistended. Negative for masses or hepatosplenomegaly. Negative for costovertebral tenderness. No rigidity, rebound, guarding. Pelvis: Stable nontender. Genitourinary: Deferred. Rectal: Deferred. Extremities: Atraumatic, negative for cords or calf pain. Neurovascular unremarkable. Neuro: Awake, alert, oriented. Cranial nerves II through XII unremarkable. Cerebellum unremarkable. Motor and sensory unremarkable throughout. Exam nonfocal. Notes: Diagnostics: CBC, CMP, UA, lipase Therapeutics: GI cocktail Prescriptions: Omeprazole Impression: Abdominal pain, gastritis, UTI Plan: Take medication as instructed Follow up with primary care provider Return to ED as needed as discussed Definitive disposition and diagnosis as appropriate pending reevaluation and review of above. Abdomen Pain Score (Numeric/FACES): 10 - Related Data Allergies Allergy/AdvReac Type Severity Reaction Status Date / Time No Known Allergies Allergy Verified 02/10/19 22:23 Home Meds: Home Meds Methotrexate Sodium/PF [Methotrexate 1 gm Vial] 1 gm IJ ASDIRECTED 02/05/19 [ History] Ciprofloxacin HCl [Cipro] 500 mg PO BID #10 tablet 02/10/19 [Rx] Omeprazole 20 mg PO ACBREAKFAST #30 cap.sr 02/10/19 [Rx] Past Medical History - Past Health History Medical/Surgical History: Denies Medical/Surgical History HEENT History: Reports: None Cardiovascular History: Reports: None Respiratory History: Reports: None Gastrointestinal History: Reports: None Genitourinary History: Reports: None PE[employer] 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: , Other (See Below) Other PEAR[employer] 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 Musculoskeletal History: Reports: RA, Other (See Below) Other Musculoskeletal History: rheumatoid arthritis Neurological History: Reports: None Psychiatric History: Reports: None Endocrine/Metabolic History: Reports: None Hematologic History: Reports: None Immunologic History: Reports: None Oncologic (Cancer) History: Reports: None Dermatologic History: Reports: None - Infectious Disease History Infectious Disease History: Reports: None - Past Surgical History Head Surgeries/Procedures: Reports: None HEENT Surgical History: Reports: None Female Surgical History: Reports: Section Social & Family History - Family History Family Medical History: Noncontributory - Tobacco Use Smoking Status *Q: Never Smoker - Caffeine Use Caffeine Use: Reports: None Caffeine Use Comment: 2/day - Recreational Drug Use Recreational Drug Use: No ED ROS GENERAL - Review of Systems Review Of Systems: ROS reveals no pertinent complaints other than HPI. ED EXAM, GI/ABD - Physical Exam Exam: See Below (see dictation) Course - Vital Signs Last Recorded V/S: Last Vital Signs Temp 97 F 02/10/19 22:25 Pulse 76 02/10/19 22:25 Resp 18 02/10/19 22:25 BP 134/84 02/10/19 22:25 Pulse Ox 98 02/10/19 22:25 - Orders/Labs/Meds Labs: Laboratory Tests 07/25/19 07/25/19 07/25/19 Range/Units 22:25 22:40 22:40 WBC 7.42 (4.0-11.0) K/uL RBC 4.29 L (4.30-5.90) M/uL Hgb 10.9 L (12.0-16.0) g/dL Hct 34.3 L (36.0-46.0) % MCV 80.0 (80.0-98.0) fL MCH 25.4 L (27.0-32.0) pg MCHC 31.8 (31.0-37.0) g/dL RDW Std Deviation 43.5 (28.0-62.0) fl RDW Coeff of Delvis 15 (11.0-15.0) % Plt Count 298 (150-400) K/uL MPV 8.90 (7.40-12.00) fL Neut % (Auto) 55.8 (48.0-80.0) % Lymph % (Auto) 29.2 (16.0-40.0) % [place] % (Auto) 6.6 (0.0-15.0) % Eos % (Auto) 8.1 H (0.0-7.0) % Baso % (Auto) 0.3 (0.0-1.5) % Neut # (Auto) 4.1 (1.4-5.7) K/uL Lymph # (Auto) 2.2 (0.6-2.4) K/uL [place] # (Auto) 0.5 (0.0-0.8) K/uL Eos # (Auto) 0.6 (0.0-0.7) K/uL Baso # (Auto) 0.0 (0.0-0.1) K/uL Nucleated RBC % 0.0 /100WBC Nucleated RBCs # 0 K/uL Sodium 139 (136-145) mmol/L Potassium 3.6 (3.5-5.1) mmol/L Chloride 105 (98-107) mmol/L Carbon Dioxide 24.4 (21.0-32.0) mmol/L BUN 15 (7.0-18.0) mg/dL Creatinine 0.8 (0.6-1.0) mg/dL Est Cr Clr Drug Dosing TNP Estimated GFR (MDRD) > 60.0 ml/min Glucose 102 (74-106) mg/dL Calcium 8.6 (8.5-10.1) mg/dL Total Bilirubin 0.2 (0.2-1.0) mg/dL AST 21 (15-37) IU/L ALT 26 (14-63) IU/L Alkaline Phosphatase 99 (46-116) U/L Total Protein 7.8 (6.4-8.2) g/dL Albumin 3.7 (3.4-5.0) g/dL Globulin 4.1 H (2.6-4.0) g/dL Albumin/Globulin Ratio 0.9 (0.9-1.6) Lipase 108 (73-393) U/L Urine Color YELLOW Urine Appearance SLT CLOUDY Urine pH 6.0 (5.0-8.0) Ur Specific [place] >= 1.030 (1.001-1.035) Urine Protein NEGATIVE (NEGATIVE) mg/dL Urine Glucose (UA) NEGATIVE (NEGATIVE) mg/dL Urine Ketones NEGATIVE (NEGATIVE) mg/dL Urine Occult Blood TRACE-INTACT H (NEGATIVE) Urine Nitrite NEGATIVE (NEGATIVE) Urine Bilirubin NEGATIVE (NEGATIVE) Urine Urobilinogen 0.2 (<2.0) EU/dL Ur Leukocyte Esterase NEGATIVE (NEGATIVE) Urine RBC 0-3 (0-2/HPF) Urine WBC 1-3 (0-5/HPF) Ur Epithelial Cells FEW (NONE-FEW) Triple Phos Crystals RARE (NEGATIVE) Urine Bacteria 1+ H (NEGATIVE) Urine Mucus MODERATE (NONE-MOD) Meds: Medications Discontinued Medications Generic Name Dose Route Start Last Admin Trade Name Freq PRN Reason Stop Dose Admin Al Hydroxide/Mg Hydroxide 15 0 ml 02/10/19 23:28 ml/ Lidocaine HCl 5 ml PO 02/10/19 23:29 ONETIME ONE Departure - Departure Time of Disposition: 23:39 Disposition: Home, Self-Care 01 Condition: Good Clinical Impression: Abdominal pain, Gastritis, UTI (urinary tract infection) - Discharge Information Prescriptions: Ciprofloxacin HCl [Cipro] 500 mg PO BID #10 tablet Omeprazole 20 mg PO ACBREAKFAST #30 cap.sr Referrals: PCP,None [Primary Care Provider] - Forms: ED Department Discharge Additional Instructions: The following information is given to patients seen in the emergency department who are being discharged to home. This information is to outline your options for follow-up care. We provide all patients seen in our emergency department with a follow-up referral. The need for follow-up, as well as the timing and circumstances, are variable depending upon the specifics of your emergency department visit. If you don't have a primary care physician on staff, we will provide you with a referral. We always advise you to contact your personal physician following an emergency department visit to inform them of the circumstance of the visit and for follow-up with them and/or the need for any referrals to a consulting specialist. The emergency department will also refer you to a specialist when appropriate. This referral assures that you have the opportunity for follow-up care with a specialist. All of these measure are taken in an effort to provide you with optimal care, which includes your follow-up. Under all circumstances we always encourage you to contact your private physician who remains a resource for coordinating your care. When calling for follow-up care, please make the office aware that this follow-up is from your recent emergency room visit. If for any reason you are refused follow-up, please contact the [facility] Emergency Department at and asked to speak to the emergency department charge nurse. [facility] [address] [place] [id number] [facility] [address] [place] [id number] Take medication as instructed Follow up with primary care provider Return to ED as needed as discussed
[2019-02-10] MEDS ORDERED: Alum Hydrox/Mag Hydrox/Simeth 15 ML, Lidocaine 2% 5 ML PO ONE ×2 (23:28)
[2019-02-10 23:29] LABS: CHLORIDE,CL 105 mmol/L (98-107); SODIUM,NA 139 mmol/L (136-145)
[2019-02-10 23:59] VITALS: BP 109/70
== END 2019-02-10 23:50 | disposition home or self-care (01) ==
LOC: MW.ED 22:15
DX: K29.70 Gastritis, unspecified, without bleeding (principal); N39.0 Urinary tract infection, site not specified; Z79.899 Other long term (current) drug therapy
CPT/HCPCS: 36415; 80053; 81001; 83690; 85025; 99284; A9270

== ENCOUNTER 2019-05-25 13:15 | Emergency (ER) | payer MEDICAID ==
--- NOTE | 2019-05-25 13:19 | EDM.PDOC ---
ED HPI GENERAL MEDICAL PROBLEM - General Chief Complaint: Cardiovascular Problem Stated Complaint: FEELING DIZZY Time Seen by Provider: 05/25/19 13:18 Source of Information: Reports: Patient History Limitations: Reports: No Limitations - History of Present Illness INITIAL COMMENTS - FREE TEXT/NARRATIVE: HISTORY AND PHYSICAL: History of present illness: Patient is a 28-year-old female who presents to the emergency room with complaints of dizziness. She states that this afternoon she was eating lunch with her daughter when she felt like the room was spinning. She states her symptoms did improve with sitting down and resting. She mentions concerned that she may be anemic as she has had an episode similar to this in the past. Patient denies any fever, chills, headache, change in vision, syncope or near syncope. Denies any chest pain, back pain, shortness of breath or cough. Denies any abdominal pain, nausea, vomiting, diarrhea, constipation or dysuria. Has not noted any blood in urine or stool. Patient has been eating and drinking appropriately. Review of systems: As per history of present illness and below otherwise all systems reviewed and negative. Past medical history: As per history of present illness and as reviewed below otherwise noncontributory. Surgical history: As per history of present illness and as reviewed below otherwise noncontributory. Social history: See social history for further information Family history: As per history of present illness and as reviewed below otherwise noncontributory. Physical exam: General: Well-developed and well nourished 28-year-old female. Alert and oriented. Nontoxic appearing and in no acute distress. HEENT: Atraumatic, normocephalic, pupils equal and reactive bilaterally, negative for conjunctival pallor or scleral icterus, mucous membranes moist, Unable to visualized the left TM due to cerumen, right TMs normal, throat clear , neck supple, nontender, trachea midline. No drooling or trismus noted. No meningeal signs. No hot potato voice noted. Lungs: Clear to auscultation, breath sounds equal bilaterally, chest nontender. Heart: S1S2, regular rate and rhythm without overt murmur Abdomen: Soft, nondistended, nontender. Skin: Intact, warm, dry. No lesions or rashes noted. Extremities: Atraumatic, moves all extremities per self without difficulty or deficits, negative for cords or calf pain. Neurovascular unremarkable. Neuro: Awake, alert, oriented. Cranial nerves II through XII unremarkable. Cerebellum unremarkable. Motor and sensory unremarkable throughout. Exam nonfocal. Notes: All diagnostics were shared with the patient. She states she does feel some improvement after fluids. We'll give her meclizine. We discussed risks versus benefits of head CT, she declines at this time. She would like to be discharged to home. Supportive care measures were reviewed and discussed. Voices understanding and is agreeable to plan of care. Denies any further questions or concerns at this time. Diagnostics: CBC, CMP, UA, HCGU Therapeutics: IV fluid, meclizine Prescription: None Impression: Dizziness Plan: 1. Please use Tylenol and/or Ibuprofen as needed for pain and fever management. 2. Get plenty of Rest. Encourage fluids to prevent dehydration. 3. Please follow up with your primary care provider. Return to the ED as needed as discussed. Definitive disposition and diagnosis as appropriate pending reevaluation and review of above. - Related Data Allergies Allergy/AdvReac Type Severity Reaction Status Date / Time No Known Allergies Allergy Verified 05/25/19 13:24 Home Meds: Home Meds . 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 Musculoskeletal History: Reports: RA, Other (See Below) Other Musculoskeletal History: rheumatoid arthritis Neurological History: Reports: None Psychiatric History: Reports: None Endocrine/Metabolic History: Reports: None Hematologic History: Reports: None Immunologic History: Reports: None Oncologic (Cancer) History: Reports: None Dermatologic History: Reports: None - Infectious Disease History Infectious Disease History: Reports: None - Past Surgical History Head Surgeries/Procedures: Reports: None HEENT Surgical History: Reports: None Female Surgical History: Reports: Section Social & Family History - Family History Family Medical History: Noncontributory - Caffeine Use Caffeine Use: Reports: None Caffeine Use Comment: 2/day ED ROS GENERAL - Review of Systems Review Of Systems: ROS reveals no pertinent complaints other than HPI. ED EXAM, GENERAL - Physical Exam Exam: See Below (See dictation) Course - Vital Signs Last Recorded V/S: Last Vital Signs Temp 97 F 05/25/19 13:22 Pulse 81 05/25/19 14:45 Resp 16 05/25/19 14:45 BP 121/79 05/25/19 14:45 Pulse Ox 100 05/25/19 14:45 - Orders/Labs/Meds Labs: Laboratory Tests 05/25/19 05/25/19 05/25/19 Range/Units 13:35 13:35 13:35 WBC 9.24 (4.0-11.0) K/uL RBC 4.44 (4.30-5.90) M/uL Hgb 11.2 L (12.0-16.0) g/dL Hct 36.4 (36.0-46.0) % MCV 82.0 (80.0-98.0) fL MCH 25.2 L (27.0-32.0) pg MCHC 30.8 L (31.0-37.0) g/dL RDW Std Deviation 47.7 (28.0-62.0) fl RDW Coeff of Delvis 16 H (11.0-15.0) % Plt Count 298 (150-400) K/uL MPV 9.40 (7.40-12.00) fL Neut % (Auto) 59.4 (48.0-80.0) % Lymph % (Auto) 24.0 (16.0-40.0) % [place] % (Auto) 6.5 (0.0-15.0) % Eos % (Auto) 9.7 H (0.0-7.0) % Baso % (Auto) 0.4 (0.0-1.5) % Neut # (Auto) 5.5 (1.4-5.7) K/uL Lymph # (Auto) 2.2 (0.6-2.4) K/uL [place] # (Auto) 0.6 (0.0-0.8) K/uL Eos # (Auto) 0.9 H (0.0-0.7) K/uL Baso # (Auto) 0.0 (0.0-0.1) K/uL Nucleated RBC % 0.0 /100WBC Nucleated RBCs # 0 K/uL Sodium (136-145) mmol/L Potassium (3.5-5.1) mmol/L Chloride (98-107) mmol/L Carbon Dioxide (21.0-32.0) mmol/L BUN (7.0-18.0) mg/dL Creatinine (0.6-1.0) mg/dL Est Cr Clr Drug Dosing mL/min Estimated GFR (MDRD) ml/min Glucose (74-106) mg/dL Calcium (8.5-10.1) mg/dL Total Bilirubin (0.2-1.0) mg/dL AST (15-37) IU/L ALT (14-63) IU/L Alkaline Phosphatase (46-116) U/L Total Protein (6.4-8.2) g/dL Albumin (3.4-5.0) g/dL Globulin (2.6-4.0) g/dL Albumin/Globulin Ratio (0.9-1.6) TSH 3rd Generation (0.36-3.74) uIU/mL Urine Color YELLOW Urine Appearance HAZY Urine pH 6.0 (5.0-8.0) Ur Specific [place] 1.020 (1.001-1.035) Urine Protein NEGATIVE (NEGATIVE) mg/dL Urine Glucose (UA) NEGATIVE (NEGATIVE) mg/dL Urine Ketones NEGATIVE (NEGATIVE) mg/dL Urine Occult Blood TRACE-INTACT H (NEGATIVE) Urine Nitrite NEGATIVE (NEGATIVE) Urine Bilirubin NEGATIVE (NEGATIVE) Urine Urobilinogen 0.2 (<2.0) EU/dL Ur Leukocyte Esterase NEGATIVE (NEGATIVE) Urine RBC 0-2 (0-2/HPF) Urine WBC 0-2 (0-5/HPF) Ur Epithelial Cells RARE (NONE-FEW) Urine Bacteria FEW (NEGATIVE) Urine HCG, Qual NEGATIVE (NEGATIVE) 05/25/19 Range/Units 13:35 WBC (4.0-11.0) K/uL RBC (4.30-5.90) M/uL Hgb (12.0-16.0) g/dL Hct (36.0-46.0) % MCV (80.0-98.0) fL MCH (27.0-32.0) pg MCHC (31.0-37.0) g/dL RDW Std Deviation (28.0-62.0) fl RDW Coeff of Delvis (11.0-15.0) % Plt Count (150-400) K/uL MPV (7.40-12.00) fL Neut % (Auto) (48.0-80.0) % Lymph % (Auto) (16.0-40.0) % [place] % (Auto) (0.0-15.0) % Eos % (Auto) (0.0-7.0) % Baso % (Auto) (0.0-1.5) % Neut # (Auto) (1.4-5.7) K/uL Lymph # (Auto) (0.6-2.4) K/uL [place] # (Auto) (0.0-0.8) K/uL Eos # (Auto) (0.0-0.7) K/uL Baso # (Auto) (0.0-0.1) K/uL Nucleated RBC % /100WBC Nucleated RBCs # K/uL Sodium 140 (136-145) mmol/L Potassium 3.4 L (3.5-5.1) mmol/L Chloride 103 (98-107) mmol/L Carbon Dioxide 25.7 (21.0-32.0) mmol/L BUN 12 (7.0-18.0) mg/dL Creatinine 0.7 (0.6-1.0) mg/dL Est Cr Clr Drug Dosing 106.70 mL/min Estimated GFR (MDRD) > 60.0 ml/min Glucose 75 (74-106) mg/dL Calcium 8.6 (8.5-10.1) mg/dL Total Bilirubin 0.2 (0.2-1.0) mg/dL AST 23 (15-37) IU/L ALT 28 (14-63) IU/L Alkaline Phosphatase 106 (46-116) U/L Total Protein 7.8 (6.4-8.2) g/dL Albumin 3.5 (3.4-5.0) g/dL Globulin 4.3 H (2.6-4.0) g/dL Albumin/Globulin Ratio 0.8 L (0.9-1.6) TSH 3rd Generation 1.36 (0.36-3.74) uIU/mL Urine Color Urine Appearance Urine pH (5.0-8.0) Ur Specific [place] (1.001-1.035) Urine Protein (NEGATIVE) mg/dL Urine Glucose (UA) (NEGATIVE) mg/dL Urine Ketones (NEGATIVE) mg/dL Urine Occult Blood (NEGATIVE) Urine Nitrite (NEGATIVE) Urine Bilirubin (NEGATIVE) Urine Urobilinogen (<2.0) EU/dL Ur Leukocyte Esterase (NEGATIVE) Urine RBC (0-2/HPF) Urine WBC (0-5/HPF) Ur Epithelial Cells (NONE-FEW) Urine Bacteria (NEGATIVE) Urine HCG, Qual (NEGATIVE) Meds: Medications Discontinued Medications Generic Name Dose Route Start Last Admin Trade Name Freq PRN Reason Stop Dose Admin Sodium Chloride 1,000 mls @ 999 mls/hr 05/25/19 13:20 05/25/19 13:35 Normal Saline IV 05/25/19 14:20 999 mls/hr STAT ONE Administration Meclizine HCl 25 mg 05/25/19 14:34 05/25/19 14:40 Antivert PO 05/25/19 14:35 25 mg ONETIME ONE Administration Departure - Departure Time of Disposition: 14:32 Disposition: Home, Self-Care 01 Clinical Impression: Dizziness Instructions: Dizziness, [id number] Referrals: Pablo Gutierrez [Ordering Only Provider] - Forms: ED Department Discharge Additional Instructions: The following information is given to patients seen in the emergency department who are being discharged to home. This information is to outline your options for follow-up care. We provide all patients seen in our emergency department with a follow-up referral. The need for follow-up, as well as the timing and circumstances, are variable depending upon the specifics of your emergency department visit. If you don't have a primary care physician on staff, we will provide you with a referral. We always advise you to contact your personal physician following an emergency department visit to inform them of the circumstance of the visit and for follow-up with them and/or the need for any referrals to a consulting specialist. The emergency department will also refer you to a specialist when appropriate. This referral assures that you have the opportunity for follow-up care with a specialist. All of these measure are taken in an effort to provide you with optimal care, which includes your follow-up. Under all circumstances we always encourage you to contact your private physician who remains a resource for coordinating your care. When calling for follow-up care, please make the office aware that this follow-up is from your recent emergency room visit. If for any reason you are refused follow-up, please contact the [facility] Emergency Department at and asked to speak to the emergency department charge nurse. [facility] [address] [place] [address] [id number] [address] [id number] 1. Please use Tylenol and/or Ibuprofen as needed for pain management. 2. Get plenty of Rest. Encourage fluids to prevent dehydration. 3. Please follow up with your primary care provider. Return to the ED as needed as discussed.
[2019-05-25] MEDS ORDERED: Sodium Chloride 0.9% 1,000 ML IV ONE (13:20)
[2019-05-25 14:28] LABS: BLOOD UREA NITROGEN,BUN 12 mg/dL (7.0-18.0); CARBON DIOXIDE,CO2 25.7 mmol/L (21.0-32.0); CHLORIDE,CL 103 mmol/L (98-107); GLUCOSE RANDOM 75 mg/dL (74-106); POTASSIUM,K 3.4 mmol/L (3.5-5.1); SODIUM,NA 140 mmol/L (136-145)
[2019-05-25] MEDS ORDERED: Meclizine 25 MG Tab PO ONE (14:34)
[2019-05-25 17:37] VITALS: BP 121/79; PULSE 81
== END 2019-05-25 14:46 | disposition home or self-care (01) ==
LOC: MW.ED 13:15
DX: R42 Dizziness and giddiness (principal)
CPT/HCPCS: 36415; 80053; 81001; 81025; 84443; 85025; 93005; 96360; 99284; A9270; J7040

== ENCOUNTER 2020-02-07 03:39 | Emergency (ER) | payer MEDICAID ==
[2020-02-07] MEDS ORDERED: Ondansetron 4 MG Tab.DIS PO ONE (03:43)
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
[2020-02-07] MEDS ORDERED: Octyl 2-Cyanoacrylate 1 Tube TOP ONE (03:59)
[2020-02-07] MEDS ORDERED: Diphtheria,Pertussis(Acell),Tetanus Vaccine 0.5 ML Syringe IM ONE (04:02)
[2020-02-07 04:43] VITALS: BP 130/85; PULSE 105
== END 2020-02-07 04:20 | disposition home or self-care (01) ==
LOC: MW.ED 03:39
DX: S01.411A Laceration without foreign body of right cheek and temporomandibular area, initial encounter (principal); Z23 Encounter for immunization; Y04.0XXA Assault by unarmed brawl or fight, initial encounter
CPT/HCPCS: 12011; 90471; 90715; 99282; 99283-25; A9270-GY

== ENCOUNTER 2020-12-25 10:29 | Emergency (ER) | payer MEDICAID ==
[2020-12-25] MEDS ORDERED: LORazepam 1 MG Tab PO ONE (11:00)
[2020-12-25] MEDS ORDERED: Ondansetron 4 MG Tab.DIS PO ONE (11:00)
--- NOTE | 2020-12-25 11:05 | EDM.PDOC ---
ED HPI GENERAL MEDICAL PROBLEM - General Chief Complaint: Behavioral/Psych Stated Complaint: SUICIDAL THOUGHTS Time Seen by Provider: 12/25/20 10:32 Source of Information: Reports: Patient History Limitations: Reports: No Limitations - History of Present Illness INITIAL COMMENTS - FREE TEXT/NARRATIVE: HISTORY AND PHYSICAL: History of present illness: Patient is a 30-year-old female who presents emergency department secondary to a 1 month history of suicidal ideation with acute exacerbation of thoughts with a plan today. Patient reports that over the last month she has increasing intrusive thoughts of hurting herself or killing herself. Patient reports that she has a plan that she would overdose on what ever medication was at hand and almost overdosed last night and again this morning.. Patient reports a history of anxiety which she does take medication for. Patient reports that she has no previous hospitalizations for any mental health concerns. Patient states she was anxious she may go through with killing herself today so came to the ED for help. Patient has a history of rheumatoid arthritis that she states has what settled off her anxiety. She states that she is on methotrexate for this. Patient denies fever, chills, chest pain, shortness of breath, or cough. Denies headache, neck stiff ness, change in vision, syncope, or near syncope. Denies nausea, vomiting, abdominal pain, diarrhea, constipation, or dysuria. Has not noted any blood in urine or stool. Patient has been eating and drinking appropriately. Review of systems: As per history of present illness and below otherwise all systems reviewed and negative. Past medical history: As per history of present illness and as reviewed below otherwise noncontributory. Surgical history: As per history of present illness and as reviewed below otherwise noncontributory. Social history: See social history for further information Family history: As per history of present illness and as reviewed below otherwise noncontributory. Physical exam: General: Patient is alert, oriented, and in mild distress and tearful. Patient sitting comfortably on exam table, anxious appearing. Patient's vital signs are stable and reviewed by me. Patient anxious and has vomited due to the anxiety. HEENT: Atraumatic, normocephalic, pupils equal and reactive bilaterally, negative for conjunctival pallor or scleral icterus, mucous membranes moist, TMs normal bilaterally, throat clear, neck supple, nontender, trachea midline. No drooling or trismus noted. No meningeal signs. No hot potato voice noted. Lungs: Clear to auscultation, breath sounds equal bilaterally, chest nontender. Heart: S1S2, regular rate and rhythm without overt murmur Abdomen: Soft, nondistended, nontender. Negative for masses or hepatosplenomegaly. Negative for costovertebral tenderness. Pelvis: Stable nontender. Genitourinary: Deferred. Rectal: Deferred. Skin: Intact, warm, dry. No lesions or rashes noted. Extremities: Atraumatic, negative for cords or calf pain. Neurovascular unremarkable. Neuro: Awake, alert, oriented. Cranial nerves II through XII unremarkable. Cerebellum unremarkable. Motor and sensory unremarkable throughout. Exam nonfocal. Notes: Patient is a 30-year-old female who presents emergency department secondary to a 1 month history of suicidal ideation with plan. Upon examination vitals are st able and patient is tearful but calm and cooperative and sitting on exam table. Hold paperwork and suicidal precautions were initiated upon arrival. Will get basic mental health labs with plan to transfer to psychiatry. CBC indicates a microcytic anemia. When comparing this back on past lab work, does appear this has been a chronic issue. Patient's hemoglobin today is 9.8 and patient is asymptomatic not meeting requirements for blood transfusion. Patient has had lower hemoglobins in the low eights with microcytic indices on past lab work since 2016. Urine drug screen noted positive for marijuana, otherwise remainder of lab works mild derangements unremarkable. Kayy Levin at capacity. I did call and speak to Dr. Kunz, at [facility], and thoroughly discussed patient's case. Accepting of transfer. EMS arranged. EMS at bedside, patient discharged to EMS in stable condition. Diagnostics: CBC, CMP, EKG, acetaminophen level, CovidDr swab, EtOH level, magnesium level, salicylate level, TSH Therapeutics: Zofran, Ativan Impression: Suicidal ideation with a plan, acute Plan: [facility] via EMS Definitive disposition and diagnosis as appropriate pending reevaluation and review of above. 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: , Other (See Below) Other PRODUCTION TEAM MANAGER History: x3 Musculoskeletal History: Reports: RA, Other (See Below) Other Musculoskeletal History: rheumatoid arthritis Neurological History: Reports: None Psychiatric History: Reports: None Endocrine/Metabolic History: Reports: None Insulin Pump Model and Contracts Specialist: None Hematologic History: Reports: None Immunologic History: Reports: None Oncologic (Cancer) History: Reports: None Dermatologic History: Reports: None - Infectious Disease History Infectious Disease History: Reports: None - Past Surgical History Head Surgeries/Procedures: Reports: None HEENT Surgical History: Reports: None Female Surgical History: Reports: Section Musculoskeletal Surgical History: Reports: None Social & Family History - Family History Family Medical History: No Pertinent Family History - Tobacco Use Tobacco Use Status *Q: Never Tobacco User - Caffeine Use Caffeine Use: Reports: None Caffeine Use Comment: 2/day - Recreational Drug Use Recreational Drug Use: No ED ROS GENERAL - Review of Systems Review Of Systems: Comprehensive ROS is negative, except as noted in HPI. ED EXAM, GENERAL - Physical Exam Exam: See Below (see dictation) Course - Vital Signs Last Recorded V/S: Last Vital Signs Temp 97.7 F 12/25/20 10:30 Pulse 113 H 12/25/20 15:30 Resp 16 12/25/20 15:00 BP 117/65 12/25/20 15:30 Pulse Ox 99 12/25/20 15:30 - Orders/Labs/Meds Orders: Active Orders 24 hr Category Date Time Status Suicide Precautions [OM.PC] Q30M Oth 12/25/20 10:30 Ordered Suicide Precautions [OM.PC] Q30M Oth 12/25/20 11:00 Ordered Suicide Precautions [OM.PC] Q30M Oth 12/25/20 11:30 Ordered Suicide Precautions [OM.PC] Q30M Oth 12/25/20 12:00 Ordered Suicide Precautions [OM.PC] Q30M Oth 12/25/20 12:30 Ordered Suicide Precautions [OM.PC] Q30M Oth 12/25/20 13:00 Ordered Suicide Precautions [OM.PC] Q30M Ot 12/25/20 13:30 Ordered Labs: Laboratory Tests 12/25/20 12/25/20 12/25/20 Range/Units 10:43 10:43 10:43 WBC (4.0-11.0) K/uL RBC (4.30-5.90) M/uL Hgb (12.0-16.0) g/dL Hct (36.0-46.0) % MCV (80.0-98.0) fL MCH (27.0-32.0) pg MCHC (31.0-37.0) g/dL RDW Std Deviation (28.0-62.0) fl RDW Coeff of Delvis (11.0-15.0) % Plt Count (150-400) K/uL MPV (7.40-12.00) fL Neut % (Auto) (48.0-80.0) % Lymph % (Auto) (16.0-40.0) % [place] % (Auto) (0.0-15.0) % Eos % (Auto) (0.0-7.0) % Baso % (Auto) (0.0-1.5) % Neut # (Auto) (1.4-5.7) K/uL Lymph # (Auto) (0.6-2.4) K/uL Gentry # (Auto) (0.0-0.8) K/uL Eos # (Auto) (0.0-0.7) K/uL Baso # (Auto) (0.0-0.1) K/uL Nucleated RBC % /100WBC Nucleated RBCs # K/uL Sodium (136-145) mmol/L Potassium (3.5-5.1) mmol/L Chloride (98-107) mmol/L Carbon Dioxide (21.0-32.0) mmol/L BUN (7.0-18.0) mg/dL Creatinine (0.6-1.0) mg/dL Est Cr Clr Drug Dosing mL/min Estimated GFR (MDRD) ml/min Glucose (74-106) mg/dL Calcium (8.5-10.1) mg/dL Magnesium (1.8-2.4) mg/dL Total Bilirubin (0.2-1.0) mg/dL AST (15-37) IU/L ALT (14-63) IU/L Alkaline Phosphatase (46-116) U/L Total Protein (6.4-8.2) g/dL Albumin (3.4-5.0) g/dL Globulin (2.6-4.0) g/dL Albumin/Globulin Ratio (0.9-1.6) TSH 3rd Generation (0.36-3.74) uIU/mL Urine Color YELLOW Urine Appearance CLEAR Urine pH 7.0 (5.0-8.0) Ur Specific [place] 1.015 (1.001-1.035) Urine Protein NEGATIVE (NEGATIVE) mg/dL Urine Glucose (UA) NEGATIVE (NEGATIVE) mg/dL Urine Ketones NEGATIVE (NEGATIVE) mg/dL Urine Occult Blood TRACE-INTACT H (NEGATIVE) Urine Nitrite NEGATIVE (NEGATIVE) Urine Bilirubin NEGATIVE (NEGATIVE) Urine Urobilinogen 0.2 (<2.0) EU/dL Ur Leukocyte Esterase NEGATIVE (NEGATIVE) Urine RBC NONE SEEN (0-2/HPF) Urine WBC 0-1 (0-5/HPF) Ur Epithelial Cells OCCASIONAL (NONE-FEW) Urine Bacteria + (NEGATIVE) Urine Mucus LIGHT (NONE-MOD) Urine HCG, Qual NEGATIVE (NEGATIVE) Salicylates (0-20) mg/dL Urine Opiates Screen NEGATIVE (NEGATIVE) Ur Oxycodone Screen NEGATIVE (NEGATIVE) Urine Methadone Screen NEGATIVE (NEGATIVE) Acetaminophen ug/mL Ur Barbiturates Screen NEGATIVE (NEGATIVE) Ur Phencyclidine Scrn NEGATIVE (NEGATIVE) Ur Amphetamine Screen NEGATIVE (NEGATIVE) U Methamphetamines Scrn NEGATIVE (NEGATIVE) U Benzodiazepines Scrn NEGATIVE (NEGATIVE) U Cocaine Metab Screen NEGATIVE (NEGATIVE) U Marijuana (THC) Screen POSITIVE (NEGATIVE) Ethyl Alcohol mg/dL SARS-CoV-2 RNA (DES) (NEGATIVE) 12/25/20 12/25/20 12/25/20 Range/Units 11:04 11:12 11:12 WBC 8.90 (4.0-11.0) K/uL RBC 4.56 (4.30-5.90) M/uL Hgb 9.8 L (12.0-16.0) g/dL Hct 32.0 L (36.0-46.0) % MCV 70.2 L (80.0-98.0) fL MCH 21.5 L (27.0-32.0) pg MCHC 30.6 L (31.0-37.0) g/dL RDW Std Deviation 43.1 (28.0-62.0) fl RDW Coeff of Delvis 17 H (11.0-15.0) % Plt Count 379 (150-400) K/uL MPV 9.20 (7.40-12.00) fL Neut % (Auto) 71.9 (48.0-80.0) % Lymph % (Auto) 17.8 (16.0-40.0) % Gentry % (Auto) 9.0 (0.0-15.0) % Eos % (Auto) 1.0 (0.0-7.0) % Baso % (Auto) 0.3 (0.0-1.5) % Neut # (Auto) 6.4 H (1.4-5.7) K/uL Lymph # (Auto) 1.6 (0.6-2.4) K/uL Gentry # (Auto) 0.8 (0.0-0.8) K/uL Eos # (Auto) 0.1 (0.0-0.7) K/uL Baso # (Auto) 0.0 (0.0-0.1) K/uL Nucleated RBC % 0.0 /100WBC Nucleated RBCs # 0 K/uL Sodium 141 (136-145) mmol/L Potassium 3.7 (3.5-5.1) mmol/L Chloride 104 (98-107) mmol/L Carbon Dioxide 23.5 (21.0-32.0) mmol/L BUN 6 L (7.0-18.0) mg/dL Creatinine 0.7 (0.6-1.0) mg/dL Est Cr Clr Drug Dosing 104.78 mL/min Estimated GFR (MDRD) > 60.0 ml/min Glucose 118 H (74-106) mg/dL Calcium 8.8 (8.5-10.1) mg/dL Magnesium 2.1 (1.8-2.4) mg/dL Total Bilirubin 0.2 (0.2-1.0) mg/dL AST 16 (15-37) IU/L ALT 19 (14-63) IU/L Alkaline Phosphatase 94 (46-116) U/L Total Protein 8.1 (6.4-8.2) g/dL Albumin 3.8 (3.4-5.0) g/dL Globulin 4.3 H (2.6-4.0) g/dL Albumin/Globulin Ratio 0.9 (0.9-1.6) TSH 3rd Generation 1.32 (0.36-3.74) uIU/mL Urine Color Urine Appearance Urine pH (5.0-8.0) Ur Specific [place] (1.001-1.035) Urine Protein (NEGATIVE) mg/dL Urine Glucose (UA) (NEGATIVE) mg/dL Urine Ketones (NEGATIVE) mg/dL Urine Occult Blood (NEGATIVE) Urine Nitrite (NEGATIVE) Urine Bilirubin (NEGATIVE) Urine Urobilinogen (<2.0) EU/dL Ur Leukocyte Esterase (NEGATIVE) Urine RBC (0-2/HPF) Urine WBC (0-5/HPF) Ur Epithelial Cells (NONE-FEW) Urine Bacteria (NEGATIVE) Urine Mucus (NONE-MOD) Urine HCG, Qual (NEGATIVE) Salicylates 1.1 (0-20) mg/dL Urine Opiates Screen (NEGATIVE) Ur Oxycodone Screen (NEGATIVE) Urine Methadone Screen (NEGATIVE) Acetaminophen <2.0 ug/mL Ur Barbiturates Screen (NEGATIVE) Ur Phencyclidine Scrn (NEGATIVE) Ur Amphetamine Screen (NEGATIVE) U Methamphetamines Scrn (NEGATIVE) U Benzodiazepines Scrn (NEGATIVE) U Cocaine Metab Screen (NEGATIVE) U Marijuana (THC) Screen (NEGATIVE) Ethyl Alcohol <3 mg/dL SARS-CoV-2 RNA (DES) NEGATIVE (NEGATIVE) Meds: Medications Discontinued Medications Generic Name Dose Route Start Last Admin Trade Name Freq PRN Reason Stop Dose Admin Lorazepam 1 mg 12/25/20 11:00 12/25/20 11:12 Lorazepam 1 Mg Tab PO 12/25/20 11:01 1 mg ONETIME ONE Administration Ondansetron HCl 4 mg 12/25/20 11:00 12/25/20 11:12 Ondansetron 4 Mg Tab.Dis PO 12/25/20 11:01 4 mg ONETIME ONE Administration Departure - Departure Time of Disposition: 19:37 Disposition: DC/Tfer to Psych Hosp/Unit 65 Clinical Impression: Suicidal ideation - Discharge Information Referrals: PCP,None [Primary Care Provider] - Forms: ED Department Discharge Sepsis Event Note (ED) - Evaluation Sepsis Screening Result: No Definite Risk - Focused Exam Vital Signs: Vital Signs Temp Pulse Resp BP Pulse Ox 12/25/20 15:30 113 H 117/65 99 12/25/20 15:00 97 16 111/61 98 12/25/20 14:30 98 16 117/69 96 12/25/20 14:00 98 16 106/59 L 98 12/25/20 13:30 111 H 16 122/70 98 12/25/20 13:00 108 H 16 133/88 99 12/25/20 12:30 91 16 121/73 98 12/25/20 12:00 86 16 117/76 98 12/25/20 11:30 95 16 99 12/25/20 11:00 95 15 125/87 96 12/25/20 10:30 97.7 F 96 15 148/85 H 96 - My Orders Last 24 Hours: My Active Orders 12/25/20 10:30 Suicide Precautions [OM.PC] Q30M 12/25/20 11:00 Suicide Precautions [OM.PC] Q30M 12/25/20 11:30 Suicide Precautions [OM.PC] Q30M 12/25/20 12:00 Suicide Precautions [OM.PC] Q30M 12/25/20 12:30 Suicide Precautions [OM.PC] Q30M 12/25/20 13:00 Suicide Precautions [OM.PC] Q30M 12/25/20 13:30 Suicide Precautions [OM.PC] Q30M - Assessment/Plan Last 24 Hours: My Active Orders 12/25/20 10:30 Suicide Precautions [OM.PC] Q30M 12/25/20 11:00 Suicide Precautions [OM.PC] Q30M 12/25/20 11:30 Suicide Precautions [OM.PC] Q30M 12/25/20 12:00 Suicide Precautions [OM.PC] Q30M 12/25/20 12:30 Suicide Precautions [OM.PC] Q30M 12/25/20 13:00 Suicide Precautions [OM.PC] Q30M 12/25/20 13:30 Suicide Precautions [OM.PC] Q30M
--- NOTE | 2020-12-25 11:10 | PCM.EKG ---
#1 Interpretation EKG Date: 12/25/20 Time: 10:35 Rhythm: Other (sinus tach) Rate (Beats/Min): 108 ST-T: Normal
[2020-12-25 12:11] LABS: ACETAMINOPHEN <2.0 ug/mL; BLOOD UREA NITROGEN,BUN 6 mg/dL (7.0-18.0); CARBON DIOXIDE,CO2 23.5 mmol/L (21.0-32.0); CHLORIDE,CL 104 mmol/L (98-107); GLUCOSE RANDOM 118 mg/dL (74-106); POTASSIUM,K 3.7 mmol/L (3.5-5.1); SODIUM,NA 141 mmol/L (136-145)
[2020-12-25 15:33] VITALS: BP 117/65; PULSE 113
== END 2020-12-25 13:55 ==
LOC: MW.ED 10:29
DX: F41.9 Anxiety disorder, unspecified (principal); Z20.822 Contact with and (suspected) exposure to COVID-19
CPT/HCPCS: 36415; 80053; 80143; 80179; 80305; 80307; 81001; 81025; 83735; 84443; 85025; 87635; 93005; 99285; A9270; 99284; U0002

== ENCOUNTER 2021-01-07 12:51 | Emergency (ER) | payer MEDICAID ==
[2021-01-07] MEDS ORDERED: Ketorolac 60 MG/2 ML SDV IM ONE (13:07)
--- NOTE | 2021-01-07 13:17 | EDM.PDOC ---
ED HPI GENERAL MEDICAL PROBLEM - General Chief Complaint: Upper Extremity Injury/Pain Stated Complaint: LEFT ARM WILL NOT GO STRAIGHT Time Seen by Provider: 01/07/21 13:03 Source of Information: Reports: Patient History Limitations: Reports: No Limitations - History of Present Illness INITIAL COMMENTS - FREE TEXT/NARRATIVE: HISTORY AND PHYSICAL: History of present illness: Patient is a 30-year-old female who presents to the emergency room with complaints of left elbow pain. Patient reports she has a history of rheumatoid arthritis and had previously been on Humira and methotrexate. She did not like the medications and side effects associated with it so has been off of those medications for several months. She recently moved to [place] and has an appointment with a new Irrigation Technician in [place] for March 06. She states her left elbow has been bothering her for several months and typically is unable to fully straighten it. Yesterday while at work she was carrying a box and the box started to fall resulting in her arm being forced straight. She now has increased pain and soft tissue swelling. She denies any other extremity involvement. She offers no systemic complaints. Review of systems: As per history of present illness and below otherwise all systems reviewed and negative. Past medical history: As per history of present illness and as reviewed below otherwise noncontributory. Surgical history: As per history of present illness and as reviewed below otherwise noncontributory. Social history: See social history for further information Family history: As per history of present illness and as reviewed below otherwise noncontributory. Physical exam: General: Well developed and well nourished. Alert and orientated x 3. Nontoxic in appearance and in no acute distress. Vital signs are stable and have been reviewed by me. Nursing notes were reviewed. HEENT: Atraumatic, normocephalic, pupils equal and reactive bilaterally, nega tive for conjunctival pallor or scleral icterus, mucous membranes moist, TMs normal bilaterally, throat clear, neck supple, nontender, trachea midline. No drooling or trismus noted. No meningeal signs. No hot potato voice noted. Lungs: Clear to auscultation bilaterally. No wheezes, rales, or rhonchi. Chest nontender. Normal work of breathing, no accessory muscles used. Heart: S1S2, regular rate and rhythm without overt murmur, gallops, or rubs. No JVD. No peripheral edema Abdomen: Soft, nondistended, nontender. Normoactive bowel sounds. Negative for masses or costovertebral tenderness. Skin: Intact, warm, dry. No lesions or rashes noted. Hematologic: No petechiae or purpra. Mucosa appropriate color and normal nail bed color and refill. Extremities: Atraumatic, moves all extremities per self without difficulty or deficits, negative for cords or calf pain. Neurovascular unremarkable. Neuro: Awake, alert, oriented. Cranial nerves II through XII unremarkable. Cerebellum unremarkable. Motor and sensory unremarkable throughout. Exam nonfocal. Psychiatric: Mood and affect are appropriate. Normal thought process. Answering questions appropriately. Notes: *This patient was seen and evaluated during the 2019 SARS-CoV-2 novel coronavirus pandemic period. Community viral transmission is ongoing at time of this encounter and the emergency department is operating under pandemic response procedures. Patient is a 30-year-old female who presents to the emergency room with complaints of a rheumatoid arthritis flareup. She has a longstanding known history of rheumatoid arthritis and states she does frequently get polyarthralgias. For the past several months her left elbow has been bothering her, resulting in her not being able to fully extend the arm without pain. She recently reached out to her open die inspector, has an appointment on March 06 for better medication management. She had stopped the medication she had been on previously due to undesirable side effects. The left elbow is slightly edematous without erythema or soft tissue fluctuance. She is agreeable to basic lab work and an x-ray. She has no concern for . Toradol IM given here. No significant findings with lab work. X-ray shows extensive degenerative changes narrowing of the elbow joint. Elevation of the anterior fat pad. Joint effusion likely. I have talked with the patient about today's findings, in addition to providing specific details for plan of care. Reassessment at the time of disposition demonstrates that the patient is in no acute distress. The patient is stable for discharge, counseling was provided and we discussed in great detail signs and symptoms that would prompt them to return to the Emergency Department. Medication, follow up and supportive care measures were re viewed and discussed. Voices understanding and is agreeable to plan of care. Denies any further questions or concerns at this time. Diagnostics: CBC, CMP, elbow x-ray Therapeutics: Toradol IM Prescription: Meloxicam, Prednisone Impression: Rheumatoid Arthritis, elbow Plan: 1. You were evaluated today on an emergent basis. Your x-ray shows extensive degenerative changes and narrowing of the joint. Please follow up with the open die inspector as you have directed. I have prescribed meloxicam and a short course of steroids. 2. You can alternate Tylenol and ibuprofen as needed for pain and fever management. 3. We encourage you to follow up with your primary care provider and Irrigation Technician in the next few days for re-evaluation and further care/management. 4. If your symptoms should worsen, new symptoms develop or any of the signs and symptoms we discussed should arise please return to the emergency room or call 911 (if needed). Definitive disposition and diagnosis as appropriate pending reevaluation and review of above. - Related Data Allergies Allergy/AdvReac Type Severity Reaction Status Date / Time No Known Allergies Allergy Verified 01/07/21 13:03 Home Meds: Home Meds Meloxicam [Mobic] 7.5 mg PO DAILY #30 tab 01/07/21 [Rx] predniSONE [Prednisone] 40 mg PO DAILY 5 Days #10 tablet 01/07/21 [Rx] Past Medical History - Past Health History Medical/Surgical History: Denies Medical/Surgical History HEENT History: Reports: None Cardiovascular History: Reports: None Respiratory History: Reports: None Gastrointestinal History: Reports: None Genitourinary History: Reports: None FURNACE HAND History: Reports: , Other (See Below) Other FURNACE HAND History: x3 Musculoskeletal History: Reports: RA, Other (See Below) Other Musculoskeletal History: rheumatoid arthritis Neurological History: Reports: None Psychiatric History: Reports: None Endocrine/Metabolic History: Reports: None Insulin Pump Model and Lead Vulcanizing Operator: None Hematologic History: Reports: None Immunologic History: Reports: None Oncologic (Cancer) History: Reports: None Dermatologic History: Reports: None - Infectious Disease History Infectious Disease History: Reports: None - Past Surgical History Head Surgeries/Procedures: Reports: None HEENT Surgical History: Reports: None Female Surgical History: Reports: Section Musculoskeletal Surgical History: Reports: None Social & Family History - Family History Family Medical History: No Pertinent Family History - Caffeine Use Caffeine Use: Reports: None Caffeine Use Comment: 2/day Review of Systems - Review of Systems Review Of Systems: Comprehensive ROS is negative, except as noted in HPI. ED EXAM, GENERAL - Physical Exam Exam: See Below (See dictation) Course - Vital Signs Last Recorded V/S: Last Vital Signs Temp 96.9 F 01/07/21 13:00 Pulse 72 01/07/21 13:00 Resp 18 01/07/21 13:00 BP 120/70 01/07/21 13:00 Pulse Ox 99 01/07/21 13:00 - Orders/Labs/Meds Orders: Active Orders 24 hr Category Date Time Status Elbow Min 3V Lt [CR] Stat Exams 01/07/21 13:07 Taken Labs: Laboratory Tests 01/07/21 01/07/21 Range/Units 13:40 13:40 WBC 6.45 (4.0-11.0) K/uL RBC 4.46 (4.30-5.90) M/uL Hgb 9.5 L (12.0-16.0) g/dL Hct 31.7 L (36.0-46.0) % MCV 71.1 L (80.0-98.0) fL MCH 21.3 L (27.0-32.0) pg MCHC 30.0 L (31.0-37.0) g/dL RDW Std Deviation 44.0 (28.0-62.0) fl RDW Coeff of [place] 17 H (11.0-15.0) % Plt Count 379 (150-400) K/uL MPV 9.10 (7.40-12.00) fL Neut % (Auto) 65.5 (48.0-80.0) % Lymph % (Auto) 21.6 (16.0-40.0) % [place] % (Auto) 6.5 (0.0-15.0) % Eos % (Auto) 5.9 (0.0-7.0) % Baso % (Auto) 0.5 (0.0-1.5) % Neut # (Auto) 4.2 (1.4-5.7) K/uL Lymph # (Auto) 1.4 (0.6-2.4) K/uL [place] # (Auto) 0.4 (0.0-0.8) K/uL Eos # (Auto) 0.4 (0.0-0.7) K/uL Baso # (Auto) 0.0 (0.0-0.1) K/uL Nucleated RBC % 0.0 /100WBC Nucleated RBCs # 0 K/uL Sodium 140 (136-145) mmol/L Potassium 4.3 (3.5-5.1) mmol/L Chloride 104 (98-107) mmol/L Carbon Dioxide 25.9 (21.0-32.0) mmol/L BUN 7 (7.0-18.0) mg/dL Creatinine 0.7 (0.6-1.0) mg/dL Est Cr Clr Drug Dosing 104.78 mL/min Estimated GFR (MDRD) > 60.0 ml/min Glucose 88 (74-106) mg/dL Calcium 9.0 (8.5-10.1) mg/dL Total Bilirubin 0.2 (0.2-1.0) mg/dL AST 20 (15-37) IU/L ALT 23 (14-63) IU/L Alkaline Phosphatase 89 (46-116) U/L Total Protein 7.5 (6.4-8.2) g/dL Albumin 3.6 (3.4-5.0) g/dL Globulin 3.9 (2.6-4.0) g/dL Albumin/Globulin Ratio 0.9 (0.9-1.6) Meds: Medications Discontinued Medications Generic Name Dose Route Start Last Admin Trade Name Freq PRN Reason Stop Dose Admin Ketorolac Tromethamine 60 mg 01/07/21 13:07 01/07/21 13:15 Ketorolac 60 Mg/2 Ml Sdv IM 01/07/21 13:08 60 mg ONETIME ONE Administration Departure - Departure Time of Disposition: 14:59 Disposition: Home, Self-Care 01 Clinical Impression: Rheumatoid arthritis Qualifiers: Rheumatoid arthritis location: elbow Rheumatoid factor presence: unspecified presence Laterality: left Qualified Code(s): M06.9 - Rheumatoid arthritis, unspecified - Discharge Information Prescriptions: Meloxicam [Mobic] 7.5 mg PO DAILY #30 tab predniSONE [Prednisone] 40 mg PO DAILY 5 Days #10 tablet Referrals: PCP,None [Primary Care Provider] - Forms: ED Department Discharge Additional Instructions: The following information is given to patients seen in the emergency department who are being discharged to home. This information is to outline your options for follow-up care. We provide all patients seen in our emergency department with a follow-up referral. The need for follow-up, as well as the timing and circumstances, are variable depending upon the specifics of your emergency department visit. If you don't have a primary care physician on staff, we will provide you with a referral. We always advise you to contact your personal physician following an emergency department visit to inform them of the circumstance of the visit and for follow-up with them and/or the need for any referrals to a consulting specialist. The emergency department will also refer you to a specialist when appropriate. This referral assures that you have the opportunity for follow-up care with a specialist. All of these measure are taken in an effort to provide you with optimal care, which includes your follow-up. Under all circumstances we always encourage you to contact your private physician who remains a resource for coordinating your care. When calling for follow-up care, please make the office aware that this follow-up is from your recent emergency room visit. If for any reason you are refused follow-up, please contact the [facility] Emergency Department at and asked to speak to the emergency department charge nurse. [facility] [address] [place] [id number] [place] [address] Thank you for choosing the [facility] emergency department in [place] for your medical needs today. It was a pleasure caring for you. Today you were seen in the emergency department for elbow pain. 1. You were evaluated today on an emergent basis. Your x-ray shows. Please follow up with the open die inspector as you have directed. I have prescribed meloxicam and a short course of steroids. 2. You can alternate Tylenol and ibuprofen as needed for pain and fever management. 3. We encourage you to follow up with your primary care provider and Irrigation Technician in the next few days for re-evaluation and further care/management. 4. If your symptoms should worsen, new symptoms develop or any of the signs and symptoms we discussed should arise please return to the emergency room or call 911 (if needed). Sepsis Event Note (ED) - Evaluation Sepsis Screening Result: No Definite Risk - Focused Exam Vital Signs: Vital Signs Temp Pulse Resp BP Pulse Ox 01/07/21 13:00 96.9 F 72 18 120/70 99 - My Orders Last 24 Hours: My Active Orders 01/07/21 13:07 Elbow Min 3V Lt [CR] Stat - Assessment/Plan Last 24 Hours: My Active Orders 01/07/21 13:07 Elbow Min 3V Lt [CR] Stat
[2021-01-07 14:15] LABS: BLOOD UREA NITROGEN,BUN 7 mg/dL (7.0-18.0); CARBON DIOXIDE,CO2 25.9 mmol/L (21.0-32.0); CHLORIDE,CL 104 mmol/L (98-107); GLUCOSE RANDOM 88 mg/dL (74-106); POTASSIUM,K 4.3 mmol/L (3.5-5.1); SODIUM,NA 140 mmol/L (136-145)
--- NOTE | 2021-01-07 15:07 | CR ---
INDICATION: Rheumatoid arthritis flare TECHNIQUE: Three views left elbow COMPARISON: None FINDINGS: Bones: Alignment is normal. No fractures or bone lesions. Joint spaces: Extensive degenerative changes in narrowing involving the elbow joint. Elevation of the anterior fat pad. Soft tissues: Unremarkable. IMPRESSION: Extensive degenerative changes narrowing of the elbow joint. Elevation of the anterior fat pad. Joint effusion likely. Dictated by Dylan Negrete MD @ 01/07/2021 3:05:[address] Dylan Negrete @ Jan 07 2021 3:05PM
[2021-01-07] MEDS ORDERED: Acetaminophen/oxyCODONE 325-5 MG Tab PO ONE (15:15)
[2021-01-07 15:21] VITALS: BP 128/79; PULSE 80
== END 2021-01-07 15:22 | disposition home or self-care (01) ==
LOC: MW.ED 12:51
DX: M06.9 Rheumatoid arthritis, unspecified (principal)
CPT/HCPCS: 36415; 73080; 80053; 85025; 96372; 99283; A9270; J1885

== ENCOUNTER 2021-04-08 13:18 | Emergency (ER) | payer MEDICAID ==
--- NOTE | 2021-04-08 14:57 | EDM.PDOC ---
ED HPI GENERAL MEDICAL PROBLEM - General Chief Complaint: ENT Problem Stated Complaint: PREV SINUS INFECTION /TESTED NEG TO COVID Time Seen by Provider: 04/08/21 14:33 Source of Information: Reports: Patient History Limitations: Reports: No Limitations - History of Present Illness INITIAL COMMENTS - FREE TEXT/NARRATIVE: Patient is a 30-year-old female who presents today for pressure in her facial area. She was seen in the outpatient clinic where she was swabbed and told she did not have cold or flu but she states she still has pain and drainage from her nose. States he may have a sinus infection. Patient states he was breathing has no shortness of breath no chest pain fever chills and no neurological complaints she went complains of this pressure-like feeling in her face. Frontal Face/Facial Pain Score (Numeric/FACES): 7 - Related Data Allergies Allergy/AdvReac Type Severity Reaction Status Date / Time No Known Allergies Allergy Verified 01/07/21 13:03 Home Meds: Home Meds predniSONE [Prednisone] 40 mg PO DAILY 5 Days #10 tablet 01/07/21 [Rx] Methotrexate 10 mg PO 04/08/21 [History] Past Medical History - Past Health History Medical/Surgical History: Denies Medical/Surgical History HEENT History: Reports: None Cardiovascular History: Reports: None Respiratory History: Reports: None Gastrointestinal History: Reports: None Genitourinary History: Reports: None BUS MONITOR History: Reports: , Other (See Below) Other BUS MONITOR History: x3 Musculoskeletal History: Reports: RA, Other (See Below) Other Musculoskeletal History: rheumatoid arthritis Neurological History: Reports: None Psychiatric History: Reports: None Endocrine/Metabolic History: Reports: None Insulin Pump Model and Spray Rig Operator: None Hematologic History: Reports: None Immunologic History: Reports: None Oncologic (Cancer) History: Reports: None Dermatologic History: Reports: None - Infectious Disease History Infectious Disease History: Reports: Chicken Pox - Past Surgical History Head Surgeries/Procedures: Reports: None HEENT Surgical History: Reports: None Female Surgical History: Reports: Section Musculoskeletal Surgical History: Reports: None Social & Family History - Family History Family Medical History: No Pertinent Family History - Tobacco Use Tobacco Use Status *Q: Never Tobacco User - Caffeine Use Caffeine Use: Reports: None Caffeine Use Comment: 2/day - Recreational Drug Use Recreational Drug Use: No ED ROS ENT - Review of Systems Review Of Systems: See Below Constitutional: Reports: No Symptoms HEENT: Reports: Rhinitis Respiratory: Reports: No Symptoms Endocrine: Reports: No Symptoms GI/Abdominal: Reports: No Symptoms : Reports: No Symptoms Musculoskeletal: Reports: No Symptoms Skin: Reports: No Symptoms Neurological: Reports: No Symptoms Psychiatric: Reports: No Symptoms Hematologic/Lymphatic: Reports: No Symptoms Immunologic: Reports: No Symptoms ED EXAM, ENT - Physical Exam Exam: See Below Exam Limited By: No Limitations General Appearance: Alert, WD/WN, No Apparent Distress Eye Exam: Bilateral Eye: EOMI, Normal Inspection, PERRL Ears: Normal External Exam, Normal TMs Nose: Normal Inspection Mouth/Throat: Normal Inspection, Normal Gums, Normal Lips Head: Atraumatic, Normocephalic Neck: Normal Inspection, Supple, Non-Tender Respiratory/Chest: No Respiratory Distress, Lungs Clear, Normal Breath Sounds Cardiovascular: Normal Peripheral Pulses, Regular Rate, Rhythm Back: Normal Inspection Extremities: Normal Inspection, Normal Range of Motion, Non-Tender Neurological: Alert, Oriented, Normal Cognition, Normal Gait Course - Vital Signs Last Recorded V/S: Last Vital Signs Temp 97.3 F 04/08/21 13:50 Pulse 82 04/08/21 13:50 Resp 18 04/08/21 13:50 BP 121/99 H 04/08/21 13:50 Pulse Ox 99 04/08/21 13:50 Departure - Departure Time of Disposition: 14:55 Disposition: Home, Self-Care 01 Condition: Good Clinical Impression: Sinus pain - Discharge Information *PRESCRIPTION DRUG MONITORING PROGRAM REVIEWED*: Not Applicable *COPY OF PRESCRIPTION DRUG MONITORING REPORT IN PATIENT OUMAR: Not Applicable Instructions: Sinusitis, Adult, [id number] Referrals: PCP,None [Primary Care Provider] - Additional Instructions: The following information is given to patients seen in the emergency department who are being discharged to home. This information is to outline your options for follow-up care. We provide all patients seen in our emergency department with a follow-up referral. The need for follow-up, as well as the timing and circumstances, are variable depending upon the specifics of your emergency department visit. If you don't have a primary care physician on staff, we will provide you with a referral. We always advise you to contact your personal physician following an emergency department visit to inform them of the circumstance of the visit and for follow-up with them and/or the need for any referrals to a consulting specialist. The emergency department will also refer you to a specialist when appropriate. This referral assures that you have the opportunity for follow-up care with a specialist. All of these measure are taken in an effort to provide you with optimal care, which includes your follow-up. Under all circumstances we always encourage you to contact your private physician who remains a resource for coordinating your care. When calling for follow-up care, please make the office aware that this follow-up is from your recent emergency room visit. If for any reason you are refused follow-up, please contact the [facility] Emergency Department at and asked to speak to the emergency department charge nurse. Please follow up with your primary care physician. If you do not have a primary care physician, see below: [facility] [address] [place] [id number] [facility] [address] [place] [id number] You are seen today for pain in your face likely related to a sinus infection. You can deal with the symptoms for a while now. Due to this we will prescribe you antibiotics and sent to your pharmacy. If you have any other confusion signs or symptoms please return to the ED otherwise follow with your primary care physician. Sepsis Event Note (ED) - Evaluation Sepsis Screening Result: No Definite Risk - Focused Exam Vital Signs: Vital Signs Temp Pulse Resp BP Pulse Ox 04/08/21 13:50 97.3 F 82 18 121/99 H 99 - Assessment/Plan Plan: Patient is a 30-year-old female presents today for pressure and pain to her face for the past 2 weeks. On exam patient looks well has no neurological deficits. We will send patient home with amoxicillin for possible sinus infection have patient follow-up PMD as needed.
[2021-04-08 15:10] VITALS: BP 114/78; PULSE 77
== END 2021-04-08 15:10 | disposition home or self-care (01) ==
LOC: MW.ED 13:18
DX: R51.9 Headache, unspecified (principal); M06.9 Rheumatoid arthritis, unspecified; Z79.899 Other long term (current) drug therapy
CPT/HCPCS: 99283

== ENCOUNTER 2021-08-02 15:41 | Emergency (ER) | payer MEDICAID ==
[2021-08-02 16:07] VITALS: BP 110/74; PULSE 80
[2021-08-02] MEDS ORDERED: Acetaminophen 325 MG Tab PO ONE (17:56)
[2021-08-02 18:46] LABS: BLOOD UREA NITROGEN,BUN 8 mg/dL (7.0-18.0); CARBON DIOXIDE,CO2 25.8 mmol/L (21.0-32.0); CHLORIDE,CL 104 mmol/L (98-107); GLUCOSE RANDOM 79 mg/dL (74-106); POTASSIUM,K 3.9 mmol/L (3.5-5.1); SODIUM,NA 139 mmol/L (136-145)
[2021-08-02] MEDS ORDERED: Iopamidol 755 Mg/ML 100 ML Bottle IVPUSH ONE (19:28)
== END 2021-08-02 22:07 | disposition home or self-care (01) ==
LOC: MW.ED 15:41
DX: U07.1 COVID-19 (principal); J12.82 Pneumonia due to coronavirus disease 2019; R09.1 Pleurisy; N63.0 Unspecified lump in unspecified breast; R22.9 Localized swelling, mass and lump, unspecified
CPT/HCPCS: 36415; 71045; 71045-26; 71275; 71275-26; 80053; 84484; 85025; 85379; 93005; 99284-25; A9270-GY; Q9967; U0002

== ENCOUNTER 2023-04-22 20:53 | Emergency (ER) | payer MEDICAID ==
[2023-04-22] MEDS ORDERED: Sodium Chloride 0.9% 10 ML Syringe FLUSH PRN (21:02)
[2023-04-22] MEDS ORDERED: Sodium Chloride 0.9% 2.5 ML Syringe FLUSH PRN (21:02)
[2023-04-22 21:16] LABS: BASOPHILS ABSOLUTE AUTO 0.04 K/uL (0.00-0.20); BASOPHILS PERCENT AUTO 0.5 % (0.0-1.0); EOSINOPHILS PERCENT AUTO 4.5 % (0.0-6.0); LYMPHOCYTES ABSOLUTE AUTO 1.86 K/uL (1.00-4.80); LYMPHOCYTES PERCENT AUTO 20.9 % (24.0-44.0); MEAN CORPUSCULAR HEMOGLOBIN 24.9 pg (28.0-32.0); MEAN CORPUSCULAR HGB CONC 31.6 g/dL (32.0-36.0); MEAN PLATELET VOLUME 9.5 fL (9.4-12.3); MONOCYTES ABSOLUTE AUTO 0.45 K/uL (0.00-0.80); MONOCYTES PERCENT AUTO 5.1 % (0.0-8.0); NEUTROPHILS ABSOLUTE AUTO 6.1 K/uL (1.8-7.7); NEUTROPHILS PERCENT AUTO 68.7 % (41.0-71.0); PLATELET COUNT,PLT 330 K/uL (150-400); RED BLOOD CELL COUNT 4.81 M/uL (4.10-5.30); WHITE BLOOD CELL COUNT,WBC 8.88 K/uL (3.9-11.3)
[2023-04-22 21:22] VITALS: BP 130/84; PULSE 83
[2023-04-22 21:45] LABS: A/G RATIO 0.9 (0.9-1.6); ALBUMIN 4.1 g/dL (3.4-5.0); BILIRUBIN TOTAL 0.2 mg/dL (0.2-1.0); CALCIUM 9.4 mg/dL (8.5-10.1); CARBON DIOXIDE,CO2 21.8 mmol/L (21.0-32.0); CREATININE 0.8 mg/dL (0.6-1.0); POTASSIUM,K 3.8 mmol/L (3.5-5.1); PROTEIN TOTAL,TP 8.7 g/dL (6.4-8.2)
[2023-04-22] MEDS ORDERED: LORazepam 2 MG/ML SDV IVPUSH STA (22:08)
[2023-04-22 22:13] LABS: BILIRUBIN,URINE NEGATIVE (NEGATIVE); COLOR,URINE YELLOW; GLUCOSE,URINE NEGATIVE (NEGATIVE); KETONES,URINE NEGATIVE (NEGATIVE); LEUKOCYTE ESTERASE,URINE TRACE (NEGATIVE); NITRITE,URINE NEGATIVE (NEGATIVE); OCCULT BLOOD,URINE SMALL (NEGATIVE); PH,URINE 6.5 (5.0-8.0); PROTEIN,URINE NEGATIVE (NEGATIVE)
[2023-04-22 22:36] LABS: APPEARANCE,URINE SLT CLOUDY
[2023-04-22 22:42] LABS: AMORPHOUS SEDIMENT,URINE LIGHT (NEGATIVE); BACTERIA,URINE FEW (NEGATIVE); EPITHELIAL CELLS,URINE MODERATE (NONE-FEW); MUCUS,URINE LIGHT (NONE-MOD)
== END 2023-04-22 23:00 | disposition home or self-care (01) ==
LOC: MW.ED 20:53
DX: F41.9 Anxiety disorder, unspecified (principal)
CPT/HCPCS: 36415; 71046; 80053; 81001; 83690; 83735; 84484; 84703; 85025; 87086; 93005; 96374; 99285; J2060; J3490; 93010; 99284

== ENCOUNTER 2024-02-27 16:24 | Emergency (ER) | payer MEDICAID ==
[2024-02-27] MEDS: Ketorolac 30 MG/ML SDV IVPUSH ONE (16:49)
[2024-02-27] MEDS: Sodium Chloride 0.9% 1,000 ML IV ONE (16:49)
[2024-02-27] MEDS: Meclizine 25 MG Tab PO ONE (16:49)
[2024-02-27 17:06] LABS: BASOPHILS ABSOLUTE AUTO 0.04 K/uL (0.00-0.20); BASOPHILS PERCENT AUTO 0.5 % (0.0-1.0); EOSINOPHILS ABSOLUTE AUTO 0.28 K/uL (0.00-0.45); EOSINOPHILS PERCENT AUTO 3.2 % (0.0-6.0); HEMATOCRIT 34.5 % (37.0-47.0); HEMOGLOBIN 11.2 g/dL (12.0-16.0); IMMATURE GRAN ABSOLUTE AUTO 0.02 K/uL (0.00-0.05); IMMATURE GRAN PERCENT AUTO 0.2 % (0.0-0.4); LYMPHOCYTES ABSOLUTE AUTO 2.81 K/uL (1.00-4.80); LYMPHOCYTES PERCENT AUTO 31.9 % (24.0-44.0); MEAN CORPUSCULAR HGB CONC 32.5 g/dL (32.0-36.0); MEAN PLATELET VOLUME 9.5 fL (9.4-12.3); MONOCYTES ABSOLUTE AUTO 0.57 K/uL (0.00-0.80); MONOCYTES PERCENT AUTO 6.5 % (0.0-8.0); NEUTROPHILS ABSOLUTE AUTO 5.09 K/uL (1.80-7.70); NEUTROPHILS PERCENT AUTO 57.7 % (41.0-71.0); PLATELET COUNT,PLT 296 K/uL (150-400); RED BLOOD CELL COUNT 4.31 M/uL (4.10-5.30); WHITE BLOOD CELL COUNT,WBC 8.81 K/uL (3.9-11.3)
[2024-02-27 17:22] LABS: A/G RATIO 0.9 (0.9-1.6); ALANINE AMINOTRANSFERASE,ALT 20 IU/L (14-63); ALBUMIN 3.4 g/dL (3.4-5.0); ALKALINE PHOSPHATASE 97 U/L (46-116); ASPARTATE AMNIOTRANSFERASE,AST 16 IU/L (15-37); BILIRUBIN TOTAL 0.3 mg/dL (0.2-1.0); BLOOD UREA NITROGEN,BUN 5 mg/dL (7.0-18.0); CALCIUM 8.4 mg/dL (8.5-10.1); CARBON DIOXIDE,CO2 27.4 mmol/L (21.0-32.0); CHLORIDE,CL 105 mmol/L (98-107); CREATININE 0.7 mg/dL (0.6-1.0); GLUCOSE RANDOM 118 mg/dL (74-106); POTASSIUM,K 3.3 mmol/L (3.5-5.1); PROTEIN TOTAL,TP 7.1 g/dL (6.4-8.2); SODIUM,NA 139 mmol/L (136-145)
[2024-02-27 17:25] LABS: ESTIMATED GFR 116 mL/min (>60)
[2024-02-27] MEDS: Potassium Chloride 20 MEQ Tab.ER PO ONE (18:01)
[2024-02-27 18:20] VITALS: BP 120/82; PULSE 70
== END 2024-02-27 18:23 | disposition home or self-care (01) ==
LOC: MW.ED 16:24
DX: R42 Dizziness and giddiness (principal); Z75.8 Other problems related to medical facilities and other health care
CPT/HCPCS: 36415; 80053; 84703; 85025; 93005; 96361; 96374; 99284; A9270; J1885; J7030; 93010; 99285

== ENCOUNTER 2025-06-04 16:29 | Emergency (ER) | payer OTHER, MEDICAID ==
[2025-06-04 16:54] VITALS: BP 113/70; PULSE 70
== END 2025-06-04 18:58 | disposition home or self-care (01) ==
LOC: MW.ED 16:29
DX: M06.9 Rheumatoid arthritis, unspecified (principal)
CPT/HCPCS: 73130; 99283; J8540